=== PATIENT | female | born 1935 | race African-American/Black ===

== ENCOUNTER 2018-08-03 22:07 | Inpatient (IN) | payer MEDICARE, MEDICAID ==
[~2018-08-03] VITALS: Ht 167.6 cm; Wt 99.8 kg
[2018-08-03] MEDS ORDERED: ONDANSETRON HCL 4MG/2ML INJ IV ONE (23:45)
[2018-08-03] MEDS ORDERED: MORPHINE SULFATE 10 MG/ML CPJ IV ONE (23:45)
[2018-08-03] MEDS ORDERED: ENALAPRIL 2.5MG/2ML VIAL 2ML IV ONE (23:45)
[2018-08-04] MEDS ORDERED: AZITHROMYCIN 500 MG in DEXT 5% WATER 250 ML IV ONE (01:00)
[2018-08-04] MEDS ORDERED: CEFTRIAXONE 1 G PREMIX 50 ML IV ONE (01:00)
[2018-08-04 02:00] LABS: BASOPHILS % 0.8 % (0.0-2.0); EOSINOPHILS % 2.7 % (0.0-5.0); HEMATOCRIT. 28.3 % (36.0-48.0); HEMOGLOBIN. 9.1 g/dL (12.0-16.0); LYMPHOCYTES % 17.3 % (20.0-50.0); MEAN CORPUSCULAR HEMOGLOBIN 29.5 pg (28.0-32.0); MEAN CORPUSCULAR VOLUME 91.2 fL (81.0-99.0); MEAN PLATELET VOLUME 7.9 fl (7.4-10.4); MONOCYTES % 7.4 % (2.0-8.0); NEUTROPHILS % 71.8 % (40.0-76.0); PLATELET 249 x1000/uL (130-400); RED CELL DISTRIBUTION WIDTH 15.2 % (11.6-14.6)
[2018-08-04 02:03] LABS: CHLORIDE 114 mEq/L (98-107)
[2018-08-04] MEDS ORDERED: LABETALOL 5MG/ML SYR 20 MG/4 ML SYRINGE IV ONE (02:30)
[2018-08-04] MEDS: LABETALOL HCL 20MG/4ML CARPUJECT IV SCH ×3 (03:26→03:50)
[2018-08-04] MEDS ORDERED: CLONIDINE 0.3MG TABLET PO ONE (05:30)
[2018-08-04] MEDS ORDERED: ALBUTEROL (0.083%) 2.5MG/3ML NEB HHN SCH (05:38)
[2018-08-04] MEDS ORDERED: ALBUTEROL (0.5%) 2.5MG/0.5ML NEB HHN ONE (05:54)
[2018-08-04] MEDS ORDERED: CLONIDINE 0.2MG TABLET ONE (08:21)
[2018-08-04] MEDS ORDERED: DOCUSATE SODIUM 100MG CAPSULE PO PRN (10:30)
[2018-08-04] MEDS ORDERED: IPRATROPIUM/ALBUTEROL 0.5-3(2.5)MG/3ML NEB INH PRN (10:30)
[2018-08-04] MEDS ORDERED: GUAIFENESIN 200MG/10ML SUGAR FREE UDC PO PRN (10:30)
[2018-08-04] MEDS ORDERED: NITROGLYCERIN 0.4MG TABLET SL SL PRN (10:30)
[2018-08-04] MEDS ORDERED: ONDANSETRON HCL 4MG/2ML INJ IV PRN (10:30)
[2018-08-04] MEDS ORDERED: ZOLPIDEM TARTRATE 5MG TABLET PO PRN (10:30)
[2018-08-04] MEDS ORDERED: CLONIDINE 0.1MG TABLET PO PRN (10:30)
[2018-08-04] MEDS ORDERED: ACETAMINOPHEN 325MG TABLET PO PRN (10:30)
[2018-08-04] MEDS ORDERED: TRAMADOL 50MG TABLET PO PRN (10:30)
[2018-08-04] MEDS ORDERED: MAGNESIUM/ALUMINUM HYDROXIDE/SIMETHICONE 30ML UDC PO PRN (10:30)
[2018-08-04 10:33] VITALS: BP 188/89
[2018-08-04] MEDS ORDERED: AMLODIPINE 10MG TABLET PO SCH (10:39)
[2018-08-04] MEDS ORDERED: MINOXIDIL 2.5MG TABLET PO SCH (11:10)
[2018-08-04] MEDS ORDERED: ENOXAPARIN 40MG/0.4ML SYR SUBCUT SCH (11:19)
[2018-08-04] MEDS ORDERED: FAMOTIDINE 20MG TABLET PO SCH (11:21)
[2018-08-04 12:00] VITALS: BP 198/108
[2018-08-04] MEDS ORDERED: FUROSEMIDE 40MG/4ML VIAL IVP SCH (13:15)
[2018-08-04] MEDS ORDERED: HYDRALAZINE HCL 50MG TABLET PO SCH (14:00)
[2018-08-04] MEDS ORDERED: ASCORBIC ACID 500 MG TABLET PO SCH (21:00)
[2018-08-04] MEDS ORDERED: METOPROLOL TARTRATE 25MG TABLET PO SCH (21:00)
[2018-08-05] MEDS ORDERED: ASPIRIN 325MG EC TABLET PO SCH (09:00)
[2018-08-05] MEDS ORDERED: FOLIC ACID/VITAMIN B COMP W-C TABLET PO SCH (09:00)
== END 2018-08-04 15:08 | disposition left against medical advice (07) | DRG 194 ==
LOC: ER 22:07 → 6WST 08-04 05:15 → EDBEDREQ 08-04 05:19 → EDBEDREQTM 08-04 05:19 → ENRESERV 08-04 08:10 → ER 08-04 09:02 → SUPCPDRO 08-04 09:39
PROVIDERS: ADMIT Internal Medicine; ATTEND Internal Medicine
DX: I13.2 Hypertensive heart and chronic kidney disease with heart failure and with stage 5 chronic kidney disease, or end stage renal disease (principal); J96.91 Respiratory failure, unspecified with hypoxia; E43 Unspecified severe protein-calorie malnutrition; G93.40 Encephalopathy, unspecified; E87.0 Hyperosmolality and hypernatremia; D63.8 Anemia in other chronic diseases classified elsewhere; E83.51 Hypocalcemia; I16.0 Hypertensive urgency; I50.33 Acute on chronic diastolic (congestive) heart failure; F41.9 Anxiety disorder, unspecified; N17.9 Acute kidney failure, unspecified; N18.5 Chronic kidney disease, stage 5; Z91.14 Patient's other noncompliance with medication regimen; Z91.11 Patient's noncompliance with dietary regimen; Z82.49 Family history of ischemic heart disease and other diseases of the circulatory system
CPT/HCPCS: 36415; 71045; 80061; 83036; 83605; 84484; 93005; 93306; 96365; 96366; 96375; 99291; J0456; J0696; J1650; J1940; J2270; J2405; J3490; J7060; J7611

== ENCOUNTER 2018-10-07 09:03 | Inpatient (IN) | payer MEDICARE, MEDICAID ==
[~2018-10-07] VITALS: Ht 170.2 cm; Wt 85.7 kg
[2018-10-07] MEDS ORDERED: KETOROLAC 15MG/ML VIAL IV ONE (11:00)
[2018-10-07] MEDS ORDERED: SODIUM CHLORIDE 0.9% 1,000 ML IV ONE (11:00)
[2018-10-07] MEDS ORDERED: ONDANSETRON HCL 4MG/2ML INJ IV ONE (11:00)
[2018-10-07 11:25] LABS: BASOPHILS % 0.7 % (0.0-2.0); EOSINOPHILS % 1.9 % (0.0-5.0); HEMATOCRIT. 30.3 % (36.0-48.0); LYMPHOCYTES % 13.3 % (20.0-50.0); MEAN CORPUSCULAR HEMOGLOBIN 30.1 pg (28.0-32.0); MEAN CORPUSCULAR VOLUME 91.2 fL (81.0-99.0); MEAN PLATELET VOLUME 7.5 fl (7.4-10.4); MONOCYTES % 5.8 % (2.0-8.0); NEUTROPHILS % 78.3 % (40.0-76.0); PLATELET 271 x1000/uL (130-400); RED BLOOD CELL COUNT 3.32 mill/uL (4.2-5.4); RED CELL DISTRIBUTION WIDTH 16.2 % (11.6-14.6)
[2018-10-07 11:29] LABS: CHLORIDE 108 mEq/L (98-107)
[2018-10-07 11:31] LABS: INR 1.1; PROTHROMBIN TIME 10.9 sec (9.1-11.1)
[2018-10-07 13:11] LABS: CLARITY URINE CLEAR (CLEAR); COLOR URINE YELLOW (YELLOW); KETONES URINE NEGATIVE (NEGATIVE); LEUKOCYTE ESTERASE URINE NEGATIVE (NEGATIVE); NITRITE URINE NEGATIVE (NEGATIVE); OCCULT BLOOD URINE NEGATIVE (NEGATIVE); PROTEIN URINE 2+ (NEGATIVE); SPECIFIC GRAVITY URINE 1.012 (1.005-1.030); UROBILINOGEN URINE 0.2 E.U./dL (0.2-1.0)
[2018-10-07] MEDS ORDERED: MAGNESIUM CITRATE 300ML SOLUTION PO ONE (17:00)
[2018-10-07] MEDS ORDERED: MAGNESIUM/ALUMINUM HYDROXIDE/SIMETHICONE 30ML UDC PO PRN (18:30)
[2018-10-07] MEDS ORDERED: MAGNESIUM HYDROXIDE 400MG/5ML 30ML UDC PO PRN (18:30)
[2018-10-07] MEDS ORDERED: DIPHENHYDRAMINE 50MG/ML VIAL IV PRN (18:30)
[2018-10-07] MEDS: AMLODIPINE 10MG TABLET PO SCH (20:12)
[2018-10-07] MEDS: HYDRALAZINE 20MG/ML VIAL IV PRN (20:13)
[2018-10-07] MEDS: METOPROLOL TARTRATE 25MG TABLET PO SCH (20:13)
[2018-10-07] MEDS ORDERED: LACTULOSE 20G/30ML UDC PO NR (21:15)
[2018-10-07] MEDS ORDERED: BISACODYL 10MG SUPP PR NR (21:30)
[2018-10-07] MEDS: ONDANSETRON HCL 4MG/2ML INJ IV PRN (21:42)
[2018-10-07] MEDS: CLONIDINE 0.2MG TABLET PO PRN (23:10)
[2018-10-08] VITALS (18 sets, daily range): BP systolic 120–230; BP diastolic 59–96
[2018-10-08] MEDS: HYDRALAZINE HCL 50MG TABLET PO SCH ×3 (00:26→06:35)
[2018-10-08] MEDS ORDERED: DEXT 5%/0.45% NACL 1000ML 1,000 ML IV SCH ×2 (01:00→16:30)
[2018-10-08] MEDS: HYDRALAZINE 20MG/ML VIAL IV PRN ×2 (02:34→21:53)
[2018-10-08] MEDS: ACETAMINOPHEN 325MG TABLET PO PRN (04:21)
[2018-10-08] MEDS: LACTULOSE 20G/30ML UDC PO SCH ×3 (06:29→22:00)
[2018-10-08] MEDS: ONDANSETRON HCL 4MG/2ML INJ IV PRN (09:10)
[2018-10-08] MEDS: METOPROLOL TARTRATE 25MG TABLET PO SCH ×2 (09:11→21:00)
[2018-10-08] MEDS: AMLODIPINE 10MG TABLET PO SCH (09:12)
[2018-10-08] MEDS ORDERED: LACTULOSE 20G/30ML UDC PO PRN (12:45)
[2018-10-08] MEDS ORDERED: BISACODYL 10MG SUPP PR PRN (12:45)
[2018-10-08 13:24] LABS: T4 FREE 0.96 ng/dL (0.76-1.46)
[2018-10-08 13:39] LABS: FERRITIN 122 ng/mL (10-291)
[2018-10-08 13:50] LABS: VITAMIN B12 SERUM 1358 pg/mL (211-911)
[2018-10-08 13:54] LABS: BG CARBOXYHEMOGLOBIN 0.5 % (0.5-1.5); BG DEOXYHEMOGLOBIN 4.6 % (0.0-5.0); BG FRACTION INSPIRED OXYGEN 21; BG HCO3 ACT 22.1 mmol/L (22.0-26.0); BG METHEMOGLOBIN 0.1 % (0.0-1.5); BG OXYGEN SATURATION 95.4 % (92.0-98.5); BG OXYHEMOGLOBIN 94.8 % (94.0-97.0); BG PCO2 31.5 mmHg (35.0-45.0); BG PH 7.464 (7.350-7.450); BG PO2 72.5 mmHg (75.0-100.0); BG SAMPLE SITE LEFT BRACHIAL; BG TOTAL HEMOGLOBIN 10.9 g/dL (12.0-18.0); BG VENT MODE ROOM AIR
[2018-10-08] MEDS: FOLIC ACID/VITAMIN B COMP W-C TABLET PO SCH (13:54)
[2018-10-08] MEDS: HYDRALAZINE HCL 100MG TABLET PO SCH ×2 (13:55→22:00)
[2018-10-08 13:59] LABS: FOLIC ACID (FOLATE) SERUM > 20.00 ng/mL (>5.38)
[2018-10-08] MEDS ORDERED: NA PHOS,M-B/NA PHOS,DI-BA ENEMA 118ML PR PRN (16:00)
[2018-10-08 16:24] LABS: HEMOGLOBIN. 10.3 g/dL (12.0-16.0); MEAN CORPUSCULAR HEMOGLOBIN 29.7 pg (28.0-32.0); MEAN CORPUSCULAR VOLUME 89.5 fL (81.0-99.0); MEAN PLATELET VOLUME 8.1 fl (7.4-10.4); PLATELET 305 x1000/uL (130-400); RED BLOOD CELL COUNT 3.46 mill/uL (4.2-5.4); RED CELL DISTRIBUTION WIDTH 16.6 % (11.6-14.6)
[2018-10-08] MEDS: PANTOPRAZOLE SODIUM 40 MG/VIAL IV SCH (16:30)
[2018-10-08] MEDS ORDERED: MORPHINE SULFATE 4 MG/ML CPJ (NOT FOR IM USE) IV PRN (16:45)
[2018-10-08] MEDS: SEVELAMER CARBONATE 800 MG TABLET PO SCH (17:50)
[2018-10-08] MEDS ORDERED: ROCURONIUM BROMIDE 10MG/ML VIAL 5ML IV ONE (18:08)
[2018-10-08] MEDS ORDERED: ETOMIDATE 2MG/ML 10ML VIAL IV ONE (18:08)
[2018-10-08] MEDS ORDERED: LIDOCAINE HCL 1% 20ML VIAL (Pyxis) INJ ONE (18:09)
[2018-10-08] MEDS ORDERED: SUCCINYLCHOLINE CHLORIDE 200MG/10ML IV ONE (18:09)
[2018-10-08] MEDS ORDERED: PHENYLEPHRINE HCL 10 MG/ML 1ML (IV VIAL) IV ONE (18:09)
[2018-10-08] MEDS ORDERED: EPHEDRINE SULFATE 50MG/ML VIAL ONE (18:09)
[2018-10-08] MEDS ORDERED: ALBUMIN HUMAN 12.5G/250ML (5%) IV ONE (18:13)
[2018-10-08] MEDS ORDERED: VANCOMYCIN 1500MG in DEXTROSE 5% WATER 250ML IV NR (18:30)
[2018-10-08] MEDS ORDERED: FENTANYL CITRATE/PF 50MCG/ML 2ML VIAL ONE (19:15)
[2018-10-08] MEDS ORDERED: MIDAZOLAM HCL 2 MG/2 ML VIAL ONE (19:15)
[2018-10-08] MEDS ORDERED: PROPOFOL 200MG/20ML VIAL IV ONE (19:15)
[2018-10-08] MEDS ORDERED: ONDANSETRON HCL 4MG/2ML INJ IV PRN (19:30)
[2018-10-08] MEDS ORDERED: ACETAMINOPHEN 650MG SUPP PR PRN (19:30)
[2018-10-08] MEDS ORDERED: VANCOMYCIN HCL 500 MG/VIAL ONE (19:46)
[2018-10-08] MEDS ORDERED: PIPERACILLIN/TAZ 2.25G PREMIX 50 ML IV SCH (20:00)
[2018-10-08] MEDS ORDERED: BACITRACIN 50,000 UNITS/VIAL ONE (20:05)
[2018-10-08] MEDS ORDERED: FAMOTIDINE 20MG/2ML VIAL IV SCH (21:00)
[2018-10-08] MEDS ORDERED: LEVOFLOXACIN 500MG PREMIX 100 ML IV SCH (22:00)
[2018-10-08 22:22] LABS: BG BASE EXCESS -8.7 mmol/L (-2.0-2.0); BG CARBOXYHEMOGLOBIN 0.3 % (0.5-1.5); BG DEOXYHEMOGLOBIN 0.8 % (0.0-5.0); BG FRACTION INSPIRED OXYGEN 60; BG HCO3 ACT 17.9 mmol/L (22.0-26.0); BG METHEMOGLOBIN 0.2 % (0.0-1.5); BG OXYGEN SATURATION 99.2 % (92.0-98.5); BG OXYHEMOGLOBIN 98.7 % (94.0-97.0); BG PH 7.257 (7.350-7.450); BG PO2 262.9 mmHg (75.0-100.0); BG SAMPLE SITE RIGHT RADIAL; BG TIDAL VOLUME(mL) 500 mL; BG TOTAL HEMOGLOBIN 10.7 g/dL (12.0-18.0); BG VENT MODE VENT - A/C; BG VENT RATE 10 set
[2018-10-08] MEDS: METRONIDAZOLE 500 MG PREMIX 100 ML IV SCH (22:34)
[2018-10-08] MEDS: DEXT 5%/0.45% NACL KCL 20MEQ/L 1,000 ML IV SCH (22:34)
[2018-10-08] MEDS: PIPERACILLIN/TAZ 2.25G PREMIX 50 ML IV SCH (23:10)
[2018-10-08 23:25] LABS: PLATELET ESTIMATE NORMAL
[2018-10-09] VITALS (64 sets, daily range): BP systolic 89–168; BP diastolic 49–100
[2018-10-09] MEDS: METRONIDAZOLE 500 MG PREMIX 100 ML IV SCH ×2 (04:30→16:51)
[2018-10-09] MEDS: DEXT 5%/0.45% NACL KCL 20MEQ/L 1,000 ML IV SCH ×2 (04:30→16:51)
[2018-10-09 05:34] LABS: HEMOGLOBIN. 9.9 g/dL (12.0-16.0); MEAN CORPUSCULAR HEMOGLOBIN 29.4 pg (28.0-32.0); MEAN CORPUSCULAR VOLUME 91.4 fL (81.0-99.0); MEAN PLATELET VOLUME 8.3 fl (7.4-10.4); PLATELET 285 x1000/uL (130-400); RED BLOOD CELL COUNT 3.39 mill/uL (4.2-5.4); RED CELL DISTRIBUTION WIDTH 16.5 % (11.6-14.6)
[2018-10-09] MEDS: HYDRALAZINE HCL 100MG TABLET PO SCH ×3 (06:00→21:09)
[2018-10-09] MEDS: LACTULOSE 20G/30ML UDC PO SCH ×3 (06:00→21:09)
[2018-10-09] MEDS: SEVELAMER CARBONATE 800 MG TABLET PO SCH ×3 (06:22→16:46)
[2018-10-09 06:23] LABS: CHLORIDE 112 mEq/L (98-107)
[2018-10-09 06:42] LABS: PHOSPHORUS 5.6 mg/dL (2.5-4.9)
[2018-10-09] MEDS ORDERED: LIDOCAINE HCL 1% 20ML VIAL (Pyxis) INJ ONE ×2 (07:59→10:09)
[2018-10-09] MEDS: AMLODIPINE 10MG TABLET PO SCH (08:40)
[2018-10-09] MEDS: METOPROLOL TARTRATE 25MG TABLET PO SCH ×2 (08:40→20:58)
[2018-10-09] MEDS: FOLIC ACID/VITAMIN B COMP W-C TABLET PO SCH (08:40)
[2018-10-09 09:24] LABS: PLATELET ESTIMATE NORMAL
[2018-10-09] MEDS ORDERED: HEPARIN 1000 UNITS/ML 10ML ONE (10:54)
[2018-10-09] MEDS ORDERED: ACETAMINOPHEN 650MG SUPP PR PRN (11:15)
[2018-10-09] MEDS: MORPHINE SULFATE 4 MG/ML CPJ (NOT FOR IM USE) IV PRN ×2 (11:44→16:55)
[2018-10-09] MEDS: PIPERACILLIN/TAZ 2.25G PREMIX 50 ML IV SCH ×2 (12:00→22:35)
[2018-10-09] MEDS ORDERED: LORAZEPAM 2MG/ML CPJ IV NR (14:15)
[2018-10-09 15:39] LABS: CLARITY URINE CLOUDY (CLEAR); COLOR URINE YELLOW (YELLOW); KETONES URINE NEGATIVE (NEGATIVE); LEUKOCYTE ESTERASE URINE TRACE (NEGATIVE); NITRITE URINE NEGATIVE (NEGATIVE); OCCULT BLOOD URINE NEGATIVE (NEGATIVE); PROTEIN URINE 3+ (NEGATIVE); SPECIFIC GRAVITY URINE 1.017 (1.005-1.030); UROBILINOGEN URINE 0.2 E.U./dL (0.2-1.0)
[2018-10-09] MEDS: PANTOPRAZOLE SODIUM 40 MG/VIAL IV SCH (16:51)
[2018-10-09 17:59] LABS: BG BASE EXCESS -0.7 mmol/L (-2.0-2.0); BG CARBOXYHEMOGLOBIN 0.3 % (0.5-1.5); BG DEOXYHEMOGLOBIN 0.9 % (0.0-5.0); BG FRACTION INSPIRED OXYGEN 45; BG HCO3 ACT 22.3 mmol/L (22.0-26.0); BG METHEMOGLOBIN 0.1 % (0.0-1.5); BG OXYGEN SATURATION 99.1 % (92.0-98.5); BG OXYHEMOGLOBIN 98.7 % (94.0-97.0); BG PH 7.475 (7.350-7.450); BG PO2 211.5 mmHg (75.0-100.0); BG SAMPLE SITE RIGHT BRACHIAL; BG TIDAL VOLUME(mL) 500 mL; BG TOTAL HEMOGLOBIN 10.6 g/dL (12.0-18.0); BG VENT MODE VENT - A/C; BG VENT RATE 14 set
[2018-10-10] VITALS (65 sets, daily range): BP systolic 97–187; BP diastolic 53–145
[2018-10-10] MEDS: DEXT 5%/0.45% NACL KCL 20MEQ/L 1,000 ML IV SCH ×2 (00:30→09:20)
[2018-10-10] MEDS: MORPHINE SULFATE 4 MG/ML CPJ (NOT FOR IM USE) IV PRN ×3 (02:30→18:30)
[2018-10-10 05:56] LABS: HEMATOCRIT. 25.6 % (36.0-48.0); HEMOGLOBIN. 8.4 g/dL (12.0-16.0); MEAN CORPUSCULAR HEMOGLOBIN 29.5 pg (28.0-32.0); MEAN CORPUSCULAR VOLUME 89.5 fL (81.0-99.0); MEAN PLATELET VOLUME 8.5 fl (7.4-10.4); PLATELET 241 x1000/uL (130-400); RED BLOOD CELL COUNT 2.86 mill/uL (4.2-5.4)
[2018-10-10] MEDS: HYDRALAZINE HCL 100MG TABLET PO SCH ×3 (06:00→21:10)
[2018-10-10] MEDS: LACTULOSE 20G/30ML UDC PO SCH ×3 (06:00→21:09)
[2018-10-10 06:05] LABS: CHLORIDE 102 mEq/L (98-107)
[2018-10-10] MEDS: SEVELAMER CARBONATE 800 MG TABLET PO SCH ×3 (06:06→16:27)
[2018-10-10 06:18] LABS: PHOSPHORUS 4.2 mg/dL (2.5-4.9)
[2018-10-10] MEDS: METOPROLOL TARTRATE 25MG TABLET PO SCH ×2 (09:00→21:09)
[2018-10-10] MEDS: FOLIC ACID/VITAMIN B COMP W-C TABLET PO SCH (09:00)
[2018-10-10] MEDS: AMLODIPINE 10MG TABLET PO SCH (09:00)
[2018-10-10] MEDS: PANTOPRAZOLE SODIUM 40 MG/VIAL IV SCH (09:14)
[2018-10-10] MEDS ORDERED: VANCOMYCIN 1250MG in DEXTROSE 5% WATER 250ML IV NR (10:00)
[2018-10-10 10:34] LABS: NUCLEATED RED BLOOD CELLS 1 /100 WBC
[2018-10-10 10:35] LABS: PLATELET ESTIMATE NORMAL
[2018-10-10] MEDS: DEXT 5%/0.45% NACL 1000ML 1,000 ML IV SCH ×2 (12:00→22:22)
[2018-10-10] MEDS ORDERED: LORAZEPAM 2MG/ML CPJ IV PRN (12:00)
[2018-10-10] MEDS ORDERED: DILTIAZEM HCL 5MG/ML 5ML VIAL IV NR (15:00)
[2018-10-10] MEDS: PIPERACILLIN/TAZ 2.25G PREMIX 50 ML IV SCH ×2 (15:22→22:21)
[2018-10-10] MEDS ORDERED: VANCOMYCIN 1500MG in DEXTROSE 5% WATER 250ML IV NR (16:00)
[2018-10-10 16:08] LABS: BG BASE EXCESS 4.2 mmol/L (-2.0-2.0); BG CARBOXYHEMOGLOBIN 0.3 % (0.5-1.5); BG DEOXYHEMOGLOBIN 2.1 % (0.0-5.0); BG HCO3 ACT 27.4 mmol/L (22.0-26.0); BG METHEMOGLOBIN 0.3 % (0.0-1.5); BG OXYGEN SATURATION 97.9 % (92.0-98.5); BG OXYHEMOGLOBIN 97.3 % (94.0-97.0); BG PCO2 35.1 mmHg (35.0-45.0); BG PO2 100.6 mmHg (75.0-100.0); BG SAMPLE SITE RIGHT BRACHIAL; BG TIDAL VOLUME(mL) 450 mL; BG TOTAL HEMOGLOBIN 8.9 g/dL (12.0-18.0); BG VENT MODE VENT - A/C; BG VENT RATE 14 set
[2018-10-10] MEDS ORDERED: DIGOXIN 500MCG/2ML AMP IV NR (19:00)
[2018-10-11] VITALS (97 sets, daily range): BP systolic 102–184; BP diastolic 48–102
[2018-10-11] MEDS: MORPHINE SULFATE 4 MG/ML CPJ (NOT FOR IM USE) IV PRN (02:00)
[2018-10-11] MEDS: LACTULOSE 20G/30ML UDC PO SCH ×3 (05:13→21:24)
[2018-10-11] MEDS: HYDRALAZINE HCL 100MG TABLET PO SCH ×3 (05:14→21:25)
[2018-10-11] MEDS: SEVELAMER CARBONATE 800 MG TABLET PO SCH ×3 (06:15→17:00)
[2018-10-11 06:47] LABS: MEAN CORPUSCULAR HEMOGLOBIN 30.1 pg (28.0-32.0); MEAN CORPUSCULAR VOLUME 89.2 fL (81.0-99.0); MEAN PLATELET VOLUME 8.6 fl (7.4-10.4); PLATELET 193 x1000/uL (130-400); RED BLOOD CELL COUNT 2.26 mill/uL (4.2-5.4); RED CELL DISTRIBUTION WIDTH 16.4 % (11.6-14.6)
[2018-10-11 07:05] LABS: HEMATOCRIT. 20.1 % (36.0-48.0); HEMOGLOBIN. 6.8 g/dL (12.0-16.0)
[2018-10-11 07:27] LABS: CHLORIDE 98 mEq/L (98-107)
[2018-10-11 07:35] LABS: PHOSPHORUS 3.5 mg/dL (2.5-4.9)
[2018-10-11] MEDS: DEXT 5%/0.45% NACL 1000ML 1,000 ML IV SCH ×2 (08:12→17:29)
[2018-10-11 08:42] LABS: BG BASE EXCESS 2.5 mmol/L (-2.0-2.0); BG CARBOXYHEMOGLOBIN 0.6 % (0.5-1.5); BG DEOXYHEMOGLOBIN 1.2 % (0.0-5.0); BG FRACTION INSPIRED OXYGEN 35; BG HCO3 ACT 26.4 mmol/L (22.0-26.0); BG METHEMOGLOBIN 0.3 % (0.0-1.5); BG OXYGEN SATURATION 98.8 % (92.0-98.5); BG OXYHEMOGLOBIN 97.9 % (94.0-97.0); BG PCO2 37.8 mmHg (35.0-45.0); BG PH 7.462 (7.350-7.450); BG PO2 118.3 mmHg (75.0-100.0); BG SAMPLE SITE RIGHT RADIAL; BG TIDAL VOLUME(mL) 450 mL; BG TOTAL HEMOGLOBIN 8.2 g/dL (12.0-18.0); BG VENT MODE VENT - A/C; BG VENT RATE 12 set
[2018-10-11] MEDS: FOLIC ACID/VITAMIN B COMP W-C TABLET PO SCH (08:43)
[2018-10-11] MEDS: METOPROLOL TARTRATE 25MG TABLET PO SCH ×2 (08:44→21:25)
[2018-10-11] MEDS: AMLODIPINE 10MG TABLET PO SCH (08:44)
[2018-10-11 09:06] LABS: PLATELET ESTIMATE NORMAL
[2018-10-11] MEDS: PANTOPRAZOLE SODIUM 40 MG/VIAL IV SCH (10:37)
[2018-10-11] MEDS: PIPERACILLIN/TAZ 2.25G PREMIX 50 ML IV SCH (10:46)
[2018-10-11] MEDS: MEROPENEM 500 MG in SODIUM CHLORIDE 0.9% 50 ML IV SCH (16:10)
[2018-10-11] MEDS: METRONIDAZOLE 500 MG PREMIX 100 ML IV SCH ×2 (17:15→22:01)
[2018-10-11 18:21] LABS: BG BASE EXCESS 1.8 mmol/L (-2.0-2.0); BG CARBOXYHEMOGLOBIN 0.3 % (0.5-1.5); BG DEOXYHEMOGLOBIN 1.8 % (0.0-5.0); BG FRACTION INSPIRED OXYGEN 35; BG HCO3 ACT 25.8 mmol/L (22.0-26.0); BG METHEMOGLOBIN 0.1 % (0.0-1.5); BG OXYGEN SATURATION 98.2 % (92.0-98.5); BG OXYHEMOGLOBIN 97.8 % (94.0-97.0); BG PCO2 38.1 mmHg (35.0-45.0); BG PH 7.448 (7.350-7.450); BG PO2 112.2 mmHg (75.0-100.0); BG PRESSURE SUPPORT 8; BG SAMPLE SITE RIGHT RADIAL; BG TOTAL HEMOGLOBIN 10.8 g/dL (12.0-18.0); BG VENT MODE VENT - CPAP
[2018-10-11 20:07] LABS: HEMATOCRIT 29.2 % (36.0-48.0); HEMOGLOBIN 9.7 g/dL (12.0-16.0)
[2018-10-12] VITALS (57 sets, daily range): BP systolic 135–214; BP diastolic 61–100
[2018-10-12] MEDS: CLONIDINE 0.2MG TABLET PO PRN (01:29)
[2018-10-12 05:27] LABS: HEMATOCRIT. 27.4 % (36.0-48.0); HEMOGLOBIN. 9.1 g/dL (12.0-16.0); MEAN CORPUSCULAR HEMOGLOBIN 29.4 pg (28.0-32.0); MEAN CORPUSCULAR VOLUME 88.8 fL (81.0-99.0); MEAN PLATELET VOLUME 8.4 fl (7.4-10.4); PLATELET 200 x1000/uL (130-400); RED BLOOD CELL COUNT 3.09 mill/uL (4.2-5.4); RED CELL DISTRIBUTION WIDTH 15.6 % (11.6-14.6)
[2018-10-12 05:35] LABS: CHLORIDE 102 mEq/L (98-107)
[2018-10-12 05:56] LABS: PHOSPHORUS 3.1 mg/dL (2.5-4.9)
[2018-10-12] MEDS: DEXT 5%/0.45% NACL 1000ML 1,000 ML IV SCH ×2 (06:10→12:46)
[2018-10-12] MEDS: HYDRALAZINE HCL 100MG TABLET PO SCH ×2 (06:19→13:01)
[2018-10-12] MEDS: SEVELAMER CARBONATE 800 MG TABLET PO SCH ×3 (06:19→17:00)
[2018-10-12] MEDS: LACTULOSE 20G/30ML UDC PO SCH ×3 (06:19→21:11)
[2018-10-12 06:58] LABS: NUCLEATED RED BLOOD CELLS 1 /100 WBC
[2018-10-12 07:01] LABS: PLATELET ESTIMATE NORMAL
[2018-10-12 08:29] LABS: BG BASE EXCESS -0.4 mmol/L (-2.0-2.0); BG CARBOXYHEMOGLOBIN 0.1 % (0.5-1.5); BG DEOXYHEMOGLOBIN 1.4 % (0.0-5.0); BG FRACTION INSPIRED OXYGEN 35; BG HCO3 ACT 23.9 mmol/L (22.0-26.0); BG METHEMOGLOBIN 0.3 % (0.0-1.5); BG OXYGEN SATURATION 98.6 % (92.0-98.5); BG OXYHEMOGLOBIN 98.2 % (94.0-97.0); BG PCO2 37.5 mmHg (35.0-45.0); BG PH 7.422 (7.350-7.450); BG PO2 129.6 mmHg (75.0-100.0); BG PRESSURE SUPPORT 8; BG SAMPLE SITE RIGHT RADIAL; BG VENT MODE VENT - CPAP
[2018-10-12] MEDS: FOLIC ACID/VITAMIN B COMP W-C TABLET PO SCH (09:07)
[2018-10-12] MEDS: AMLODIPINE 10MG TABLET PO SCH (09:07)
[2018-10-12] MEDS: METRONIDAZOLE 500 MG PREMIX 100 ML IV SCH ×2 (09:07→21:10)
[2018-10-12] MEDS: PANTOPRAZOLE SODIUM 40 MG/VIAL IV SCH (09:07)
[2018-10-12] MEDS: METOPROLOL TARTRATE 25MG TABLET PO SCH ×2 (09:07→21:10)
[2018-10-12] MEDS: MORPHINE SULFATE 4 MG/ML CPJ (NOT FOR IM USE) IV PRN ×2 (09:45→18:03)
[2018-10-12 09:53] LABS: HEMATOCRIT 28.8 % (36.0-48.0); HEMOGLOBIN 9.4 g/dL (12.0-16.0); MEAN CORPUSCULAR HEMOGLOBIN 29.6 pg (28.0-32.0); MEAN CORPUSCULAR VOLUME 90.1 fL (81.0-99.0); PLATELET 217 x1000/uL (130-400); RED BLOOD CELL COUNT 3.19 mill/uL (4.2-5.4)
[2018-10-12] MEDS ORDERED: METOPROLOL TARTRATE 5MG/5ML VIAL IV NR (11:00)
[2018-10-12] MEDS: MEROPENEM 500 MG in SODIUM CHLORIDE 0.9% 50 ML IV SCH (12:46)
[2018-10-12] MEDS ORDERED: METOPROLOL TARTRATE 5MG/5ML VIAL IV PRN (15:02)
[2018-10-12 16:23] LABS: BG BASE EXCESS -2.3 mmol/L (-2.0-2.0); BG CARBOXYHEMOGLOBIN 0.2 % (0.5-1.5); BG DEOXYHEMOGLOBIN 1.7 % (0.0-5.0); BG FRACTION INSPIRED OXYGEN 35; BG HCO3 ACT 21.7 mmol/L (22.0-26.0); BG METHEMOGLOBIN 0.2 % (0.0-1.5); BG OXYGEN SATURATION 98.3 % (92.0-98.5); BG OXYHEMOGLOBIN 97.9 % (94.0-97.0); BG PCO2 34.2 mmHg (35.0-45.0); BG PO2 107.9 mmHg (75.0-100.0); BG SAMPLE SITE RIGHT RADIAL; BG TOTAL HEMOGLOBIN 10.1 g/dL (12.0-18.0); BG VENT MODE T-TUBE
[2018-10-13] VITALS (58 sets, daily range): BP systolic 125–190; BP diastolic 56–92
[2018-10-13] MEDS: HYDRALAZINE HCL 100MG TABLET PO SCH ×4 (00:11→21:31)
[2018-10-13] MEDS: DEXT 5%/0.45% NACL 1000ML 1,000 ML IV SCH ×2 (02:29→15:00)
[2018-10-13 05:14] LABS: HEMATOCRIT. 29.2 % (36.0-48.0); HEMOGLOBIN. 9.6 g/dL (12.0-16.0); MEAN CORPUSCULAR HEMOGLOBIN 29.3 pg (28.0-32.0); MEAN CORPUSCULAR VOLUME 89.7 fL (81.0-99.0); MEAN PLATELET VOLUME 8.2 fl (7.4-10.4); PLATELET 214 x1000/uL (130-400); RED BLOOD CELL COUNT 3.26 mill/uL (4.2-5.4); RED CELL DISTRIBUTION WIDTH 15.9 % (11.6-14.6)
[2018-10-13 05:39] LABS: CHLORIDE 102 mEq/L (98-107)
[2018-10-13] MEDS: LACTULOSE 20G/30ML UDC PO SCH ×3 (06:33→21:30)
[2018-10-13] MEDS: SEVELAMER CARBONATE 800 MG TABLET PO SCH ×3 (06:39→17:44)
[2018-10-13 06:53] LABS: HEPATITIS B SURFACE ANTIGEN NEGATIVE
[2018-10-13 07:23] LABS: HEPATITIS A AB IGM NEGATIVE (NEGATIVE)
[2018-10-13 07:33] LABS: BG BASE EXCESS -1.4 mmol/L (-2.0-2.0); BG CARBOXYHEMOGLOBIN 0.3 % (0.5-1.5); BG DEOXYHEMOGLOBIN 1.5 % (0.0-5.0); BG FRACTION INSPIRED OXYGEN 35; BG HCO3 ACT 23.1 mmol/L (22.0-26.0); BG METHEMOGLOBIN 0.1 % (0.0-1.5); BG OXYGEN SATURATION 98.5 % (92.0-98.5); BG OXYHEMOGLOBIN 98.1 % (94.0-97.0); BG PCO2 37.7 mmHg (35.0-45.0); BG PH 7.405 (7.350-7.450); BG PO2 126.4 mmHg (75.0-100.0); BG SAMPLE SITE RIGHT RADIAL; BG TOTAL HEMOGLOBIN 9.9 g/dL (12.0-18.0); BG VENT MODE MASK - AEROSOL
[2018-10-13] MEDS: METRONIDAZOLE 500 MG PREMIX 100 ML IV SCH ×2 (08:58→20:50)
[2018-10-13] MEDS: FOLIC ACID/VITAMIN B COMP W-C TABLET PO SCH (08:58)
[2018-10-13] MEDS: PANTOPRAZOLE SODIUM 40 MG/VIAL IV SCH (08:59)
[2018-10-13] MEDS: METOPROLOL TARTRATE 25MG TABLET PO SCH ×2 (08:59→20:51)
[2018-10-13] MEDS: AMLODIPINE 10MG TABLET PO SCH (08:59)
[2018-10-13 10:27] LABS: PLATELET ESTIMATE NORMAL
[2018-10-13] MEDS: MEROPENEM 500 MG in SODIUM CHLORIDE 0.9% 50 ML IV SCH (13:07)
[2018-10-13] MEDS: ACETAMINOPHEN 325MG TABLET PO PRN (22:07)
[2018-10-13] MEDS: CLONIDINE 0.2MG TABLET PO PRN (22:07)
[2018-10-14] VITALS (53 sets, daily range): BP systolic 130–169; BP diastolic 53–121
[2018-10-14] MEDS: DEXT 5%/0.45% NACL 1000ML 1,000 ML IV SCH (04:42)
[2018-10-14 05:17] LABS: HIV SCREEN 4G Non Reactive (Non Reactive)
[2018-10-14 05:39] LABS: HEMOGLOBIN. 9.2 g/dL (12.0-16.0); MEAN CORPUSCULAR HEMOGLOBIN 29.3 pg (28.0-32.0); MEAN CORPUSCULAR VOLUME 89.4 fL (81.0-99.0); MEAN PLATELET VOLUME 8.4 fl (7.4-10.4); PLATELET 206 x1000/uL (130-400); RED BLOOD CELL COUNT 3.13 mill/uL (4.2-5.4); RED CELL DISTRIBUTION WIDTH 15.7 % (11.6-14.6)
[2018-10-14 05:41] LABS: CHLORIDE 106 mEq/L (98-107)
[2018-10-14 05:47] LABS: PHOSPHORUS 3.1 mg/dL (2.5-4.9)
[2018-10-14] MEDS: HYDRALAZINE HCL 100MG TABLET PO SCH ×3 (05:52→21:59)
[2018-10-14] MEDS: LACTULOSE 20G/30ML UDC PO SCH ×2 (05:52→14:00)
[2018-10-14] MEDS: SEVELAMER CARBONATE 800 MG TABLET PO SCH ×4 (07:00→18:00)
[2018-10-14] MEDS: METOPROLOL TARTRATE 25MG TABLET PO SCH ×2 (09:00→10:19)
[2018-10-14] MEDS: AMLODIPINE 10MG TABLET PO SCH ×2 (09:13→10:19)
[2018-10-14] MEDS: FOLIC ACID/VITAMIN B COMP W-C TABLET PO SCH (09:13)
[2018-10-14] MEDS: METRONIDAZOLE 500 MG PREMIX 100 ML IV SCH ×2 (09:18→21:56)
[2018-10-14] MEDS: PANTOPRAZOLE SODIUM 40 MG/VIAL IV SCH (09:18)
[2018-10-14] MEDS: MEROPENEM 500 MG in SODIUM CHLORIDE 0.9% 50 ML IV SCH (13:21)
[2018-10-14 14:20] LABS: PLATELET ESTIMATE NORMAL
[2018-10-14] MEDS ORDERED: LORAZEPAM 2MG/ML CPJ IV PRN (16:00)
[2018-10-14] MEDS: MORPHINE SULFATE 4 MG/ML CPJ (NOT FOR IM USE) IV PRN (22:18)
[2018-10-15] VITALS (11 sets, daily range): BP systolic 137–169; BP diastolic 64–96
[2018-10-15] MEDS: HYDRALAZINE HCL 100MG TABLET PO SCH ×3 (06:16→21:30)
[2018-10-15 06:27] LABS: HEMATOCRIT. 28.6 % (36.0-48.0); HEMOGLOBIN. 9.3 g/dL (12.0-16.0); MEAN CORPUSCULAR HEMOGLOBIN 29.4 pg (28.0-32.0); MEAN CORPUSCULAR VOLUME 90.3 fL (81.0-99.0); MEAN PLATELET VOLUME 8.5 fl (7.4-10.4); PLATELET 246 x1000/uL (130-400); RED BLOOD CELL COUNT 3.17 mill/uL (4.2-5.4); RED CELL DISTRIBUTION WIDTH 15.6 % (11.6-14.6)
[2018-10-15 06:43] LABS: CHLORIDE 104 mEq/L (98-107)
[2018-10-15] MEDS: METOPROLOL TARTRATE 25MG TABLET PO SCH (08:51)
[2018-10-15] MEDS: METRONIDAZOLE 500 MG PREMIX 100 ML IV SCH ×2 (08:51→21:30)
[2018-10-15] MEDS: SEVELAMER CARBONATE 800 MG TABLET PO SCH ×3 (08:51→18:04)
[2018-10-15] MEDS: PANTOPRAZOLE SODIUM 40 MG/VIAL IV SCH (08:51)
[2018-10-15] MEDS: MORPHINE SULFATE 4 MG/ML CPJ (NOT FOR IM USE) IV PRN (08:55)
[2018-10-15] MEDS: FOLIC ACID/VITAMIN B COMP W-C TABLET PO SCH (09:06)
[2018-10-15] MEDS ORDERED: METOPROLOL TARTRATE 25MG TABLET PO NR (10:05)
[2018-10-15] MEDS: MEROPENEM 500 MG in SODIUM CHLORIDE 0.9% 50 ML IV SCH (12:22)
[2018-10-15] MEDS: METOPROLOL TARTRATE 50MG TABLET PO SCH (21:30)
[2018-10-16] VITALS: BP 161/72
[2018-10-16 03:59] VITALS: BP 166/76
[2018-10-16] MEDS: HYDRALAZINE HCL 100MG TABLET PO SCH ×2 (05:46→15:08)
[2018-10-16 06:00] LABS: HEMATOCRIT. 30.7 % (36.0-48.0); MEAN CORPUSCULAR HEMOGLOBIN 29.3 pg (28.0-32.0); MEAN PLATELET VOLUME 8.6 fl (7.4-10.4); PLATELET 259 x1000/uL (130-400); RED BLOOD CELL COUNT 3.41 mill/uL (4.2-5.4); RED CELL DISTRIBUTION WIDTH 15.7 % (11.6-14.6)
[2018-10-16 07:37] LABS: PHOSPHORUS 4.7 mg/dL (2.5-4.9)
[2018-10-16 07:53] LABS: PLATELET ESTIMATE NORMAL
[2018-10-16 08:00] VITALS: BP 142/82
[2018-10-16 10:44] LABS: PLATELET ESTIMATE NORMAL
[2018-10-16 12:00] VITALS: BP 135/62
[2018-10-16] MEDS ORDERED: HEPARIN SODIUM 1,000 UNIT/1ML VIAL IV NR (12:30)
[2018-10-16] MEDS: PANTOPRAZOLE SODIUM 40 MG/VIAL IV SCH (15:06)
[2018-10-16] MEDS: METRONIDAZOLE 500 MG PREMIX 100 ML IV SCH (15:06)
[2018-10-16] MEDS: FOLIC ACID/VITAMIN B COMP W-C TABLET PO SCH (15:07)
[2018-10-16] MEDS: METOPROLOL TARTRATE 50MG TABLET PO SCH (15:07)
[2018-10-16] MEDS: AMLODIPINE 10MG TABLET PO SCH (15:07)
[2018-10-16 16:00] VITALS: BP 159/70
[2018-10-16] MEDS: ACETAMINOPHEN 325MG TABLET PO PRN (18:01)
[2018-10-16] MEDS: CEFTRIAXONE 2 G in DEXTROSE 5% WATER 50 ML IV SCH (18:06)
[2018-10-16] MEDS: SEVELAMER CARBONATE 800 MG TABLET PO SCH (18:07)
[2018-10-16 20:00] VITALS: BP 152/54
[2018-10-17] VITALS: BP 136/67
[2018-10-17] MEDS: MORPHINE SULFATE 4 MG/ML CPJ (NOT FOR IM USE) IV PRN (03:35)
[2018-10-17 04:00] VITALS: BP 148/64
[2018-10-17] MEDS: HYDRALAZINE HCL 100MG TABLET PO SCH ×3 (06:08→22:08)
[2018-10-17 06:20] LABS: HEMATOCRIT. 28.5 % (36.0-48.0); HEMOGLOBIN. 9.2 g/dL (12.0-16.0); MEAN PLATELET VOLUME 8.6 fl (7.4-10.4); PLATELET 280 x1000/uL (130-400); RED BLOOD CELL COUNT 3.16 mill/uL (4.2-5.4); RED CELL DISTRIBUTION WIDTH 15.3 % (11.6-14.6)
[2018-10-17 06:32] LABS: CHLORIDE 101 mEq/L (98-107)
[2018-10-17 06:39] LABS: PHOSPHORUS 3.8 mg/dL (2.5-4.9)
[2018-10-17 08:00] VITALS: BP 141/59
[2018-10-17] MEDS: FOLIC ACID/VITAMIN B COMP W-C TABLET PO SCH (08:40)
[2018-10-17] MEDS: AMLODIPINE 10MG TABLET PO SCH (08:40)
[2018-10-17] MEDS: METOPROLOL TARTRATE 50MG TABLET PO SCH ×2 (08:40→22:08)
[2018-10-17] MEDS: SEVELAMER CARBONATE 800 MG TABLET PO SCH ×3 (08:40→17:29)
[2018-10-17] MEDS: PANTOPRAZOLE SODIUM 40 MG/VIAL IV SCH (08:41)
[2018-10-17] MEDS: METRONIDAZOLE 500 MG PREMIX 100 ML IV SCH (08:41)
[2018-10-17 10:11] LABS: PLATELET ESTIMATE NORMAL
[2018-10-17] MEDS: CEFTRIAXONE 2 G in DEXTROSE 5% WATER 50 ML IV SCH (11:20)
[2018-10-17 12:00] VITALS: BP 133/56
[2018-10-17] MEDS ORDERED: LACTULOSE 20G/30ML UDC PO ONE (15:45)
[2018-10-17 16:00] VITALS: BP 144/63
[2018-10-17] MEDS: DOCUSATE SODIUM 100MG CAPSULE PO SCH (17:29)
[2018-10-17 20:00] VITALS: BP 156/68
[2018-10-17] MEDS ORDERED: METRONIDAZOLE 500 MG PREMIX 100 ML IV SCH (21:00)
[2018-10-18] VITALS (7 sets, daily range): BP systolic 110–157; BP diastolic 60–75
[2018-10-18] MEDS: METRONIDAZOLE 500 MG PREMIX 100 ML IV SCH ×3 (05:45→20:52)
[2018-10-18] MEDS: MORPHINE SULFATE 4 MG/ML CPJ (NOT FOR IM USE) IV PRN ×3 (05:46→22:53)
[2018-10-18] MEDS: HYDRALAZINE HCL 100MG TABLET PO SCH ×3 (05:47→20:52)
[2018-10-18 06:40] LABS: HEMOGLOBIN. 9.4 g/dL (12.0-16.0); MEAN CORPUSCULAR HEMOGLOBIN 28.9 pg (28.0-32.0); MEAN CORPUSCULAR VOLUME 88.9 fL (81.0-99.0); PLATELET 339 x1000/uL (130-400); RED BLOOD CELL COUNT 3.26 mill/uL (4.2-5.4); RED CELL DISTRIBUTION WIDTH 15.2 % (11.6-14.6)
[2018-10-18] MEDS: PANTOPRAZOLE SODIUM 40 MG/VIAL IV SCH (08:52)
[2018-10-18] MEDS: METOPROLOL TARTRATE 50MG TABLET PO SCH ×2 (08:53→20:52)
[2018-10-18] MEDS: DOCUSATE SODIUM 100MG CAPSULE PO SCH ×2 (08:53→18:06)
[2018-10-18] MEDS: FOLIC ACID/VITAMIN B COMP W-C TABLET PO SCH (08:53)
[2018-10-18] MEDS: SEVELAMER CARBONATE 800 MG TABLET PO SCH ×3 (08:53→18:06)
[2018-10-18] MEDS: AMLODIPINE 10MG TABLET PO SCH (08:53)
[2018-10-18] MEDS: CEFTRIAXONE 2 G in DEXTROSE 5% WATER 50 ML IV SCH (12:11)
[2018-10-18 13:58] LABS: PLATELET ESTIMATE NORMAL
[2018-10-18] MEDS ORDERED: LACTULOSE 20G/30ML UDC PO NR (16:30)
[2018-10-18] MEDS: ACETAMINOPHEN 325MG TABLET PO PRN (21:03)
[2018-10-19] MEDS ORDERED: MORPHINE SULFATE 4 MG/ML CPJ (NOT FOR IM USE) IV PRN (01:00)
[2018-10-19 04:00] VITALS: BP 167/59
[2018-10-19 04:30] VITALS: BP 148/64
[2018-10-19 06:09] LABS: HEMATOCRIT. 26.3 % (36.0-48.0); HEMOGLOBIN. 8.6 g/dL (12.0-16.0); MEAN CORPUSCULAR HEMOGLOBIN 29.3 pg (28.0-32.0); MEAN CORPUSCULAR VOLUME 89.7 fL (81.0-99.0); MEAN PLATELET VOLUME 8.2 fl (7.4-10.4); PLATELET 326 x1000/uL (130-400); RED BLOOD CELL COUNT 2.93 mill/uL (4.2-5.4); RED CELL DISTRIBUTION WIDTH 15.1 % (11.6-14.6)
[2018-10-19 06:54] LABS: PHOSPHORUS 3.2 mg/dL (2.5-4.9)
[2018-10-19] MEDS: METRONIDAZOLE 500 MG PREMIX 100 ML IV SCH ×3 (07:08→21:31)
[2018-10-19] MEDS: HYDRALAZINE HCL 100MG TABLET PO SCH ×3 (07:08→21:31)
[2018-10-19 08:00] VITALS: BP 153/75
[2018-10-19] MEDS: DOCUSATE SODIUM 100MG CAPSULE PO SCH ×2 (09:15→17:53)
[2018-10-19] MEDS: AMLODIPINE 10MG TABLET PO SCH (09:15)
[2018-10-19] MEDS: METOPROLOL TARTRATE 50MG TABLET PO SCH ×2 (09:15→21:31)
[2018-10-19] MEDS: SEVELAMER CARBONATE 800 MG TABLET PO SCH ×3 (09:15→17:52)
[2018-10-19] MEDS: FOLIC ACID/VITAMIN B COMP W-C TABLET PO SCH (09:15)
[2018-10-19] MEDS: PANTOPRAZOLE SODIUM 40 MG/VIAL IV SCH (09:15)
[2018-10-19 09:33] LABS: PLATELET ESTIMATE NORMAL
[2018-10-19] MEDS: CEFTRIAXONE 2 G in DEXTROSE 5% WATER 50 ML IV SCH (10:38)
[2018-10-19 12:00] VITALS: BP 142/79
[2018-10-19] MEDS: LOSARTAN POTASSIUM 25 MG TABLET PO SCH (13:22)
[2018-10-19 16:00] VITALS: BP 145/58
[2018-10-19 20:00] VITALS: BP 151/73
[2018-10-19] MEDS: ACETAMINOPHEN 325MG TABLET PO PRN (21:40)
[2018-10-20] VITALS (8 sets, daily range): BP systolic 114–167; BP diastolic 51–70
[2018-10-20] MEDS: HYDRALAZINE 20MG/ML VIAL IV PRN (00:37)
[2018-10-20 05:25] LABS: MEAN CORPUSCULAR HEMOGLOBIN 29.7 pg (28.0-32.0); MEAN CORPUSCULAR VOLUME 89.3 fL (81.0-99.0); MEAN PLATELET VOLUME 7.9 fl (7.4-10.4); PLATELET 360 x1000/uL (130-400); RED BLOOD CELL COUNT 2.69 mill/uL (4.2-5.4)
[2018-10-20 05:39] LABS: PHOSPHORUS 3.1 mg/dL (2.5-4.9)
[2018-10-20] MEDS: METRONIDAZOLE 500 MG PREMIX 100 ML IV SCH ×3 (06:17→20:32)
[2018-10-20] MEDS: HYDRALAZINE HCL 100MG TABLET PO SCH ×2 (06:18→15:03)
[2018-10-20 08:32] LABS: PLATELET ESTIMATE NORMAL
[2018-10-20] MEDS: FOLIC ACID/VITAMIN B COMP W-C TABLET PO SCH (09:16)
[2018-10-20] MEDS: AMLODIPINE 10MG TABLET PO SCH (09:16)
[2018-10-20] MEDS: DOCUSATE SODIUM 100MG CAPSULE PO SCH (09:16)
[2018-10-20] MEDS: LOSARTAN POTASSIUM 25 MG TABLET PO SCH (09:16)
[2018-10-20] MEDS: SEVELAMER CARBONATE 800 MG TABLET PO SCH ×3 (09:27→18:10)
[2018-10-20] MEDS: METOPROLOL TARTRATE 50MG TABLET PO SCH (09:28)
[2018-10-20] MEDS: PANTOPRAZOLE SODIUM 40 MG/VIAL IV SCH (09:32)
[2018-10-20] MEDS: CEFTRIAXONE 2 G in DEXTROSE 5% WATER 50 ML IV SCH (12:55)
[2018-10-20] MEDS: ACETAMINOPHEN 325MG TABLET PO PRN (12:55)
[2018-10-20] MEDS ORDERED: HYDROCODONE/ACETAMINOPHEN 5/325MG TABLET PO PRN (14:45)
== END 2018-10-20 21:30 | DRG 710 ==
LOC: ER 09:17 → 6WST 16:57 → ENRESERV 22:50 → 6WST 10-08 00:22 → MICUSO 10-08 20:58 → 5EST 10-14 16:55 → 7WST 10-16 18:30
PROVIDERS: ADMIT Internal Medicine; ATTEND Internal Medicine
PROC: 0WJP0ZZ Inspection of Gastrointestinal Tract, Open Approach (ICD-10-PCS; principal; 2018-10-08)
PROC: 0DBN0ZZ Excision of Sigmoid Colon, Open Approach (ICD-10-PCS; 2018-10-08)
PROC: 0W9G0ZZ Drainage of Peritoneal Cavity, Open Approach (ICD-10-PCS; 2018-10-08)
PROC: 0D1N0Z4 Bypass Sigmoid Colon to Cutaneous, Open Approach (ICD-10-PCS; 2018-10-08)
PROC: 5A1955Z Respiratory Ventilation, Greater than 96 Consecutive Hours (ICD-10-PCS; 2018-10-08)
PROC: 02HV33Z Insertion of Infusion Device into Superior Vena Cava, Percutaneous Approach (ICD-10-PCS; 2018-10-09)
PROC: 5A1D70Z Performance of Urinary Filtration, Intermittent, Less than 6 Hours Per Day (ICD-10-PCS; 2018-10-09)
PROC: 5A1D70Z Performance of Urinary Filtration, Intermittent, Less than 6 Hours Per Day (ICD-10-PCS; 2018-10-10)
PROC: 30233N1 Transfusion of Nonautologous Red Blood Cells into Peripheral Vein, Percutaneous Approach (ICD-10-PCS; 2018-10-11)
PROC: 5A1D70Z Performance of Urinary Filtration, Intermittent, Less than 6 Hours Per Day (ICD-10-PCS; 2018-10-12)
PROC: 5A1D70Z Performance of Urinary Filtration, Intermittent, Less than 6 Hours Per Day (ICD-10-PCS; 2018-10-15)
PROC: 5A1D70Z Performance of Urinary Filtration, Intermittent, Less than 6 Hours Per Day (ICD-10-PCS; 2018-10-17)
PROC: 5A1D70Z Performance of Urinary Filtration, Intermittent, Less than 6 Hours Per Day (ICD-10-PCS; 2018-10-19)
DX: A41.4 Sepsis due to anaerobes (principal); K63.1 Perforation of intestine (nontraumatic); J96.00 Acute respiratory failure, unspecified whether with hypoxia or hypercapnia; N17.9 Acute kidney failure, unspecified; I13.2 Hypertensive heart and chronic kidney disease with heart failure and with stage 5 chronic kidney disease, or end stage renal disease; K65.9 Peritonitis, unspecified; L89.159 Pressure ulcer of sacral region, unspecified stage; J18.1 Lobar pneumonia, unspecified organism; E87.3 Alkalosis; N18.6 End stage renal disease; K56.7 Ileus, unspecified; E87.5 Hyperkalemia; I50.43 Acute on chronic combined systolic (congestive) and diastolic (congestive) heart failure; J44.9 Chronic obstructive pulmonary disease, unspecified; D64.9 Anemia, unspecified; K56.41 Fecal impaction; F41.9 Anxiety disorder, unspecified; E03.9 Hypothyroidism, unspecified; R65.20 Severe sepsis without septic shock; K91.89 Other postprocedural complications and disorders of digestive system; Z51.5 Encounter for palliative care; Z78.1 Physical restraint status; Z81.8 Family history of other mental and behavioral disorders; Z82.49 Family history of ischemic heart disease and other diseases of the circulatory system; Z99.2 Dependence on renal dialysis; Z87.891 Personal history of nicotine dependence; F03.90 Unspecified dementia, unspecified severity, without behavioral disturbance, psychotic disturbance, mood disturbance, and anxiety
CPT/HCPCS: 36415; 36569; 36600; 71045; 74018; 74021; 74176; 76937; 80048; 80061; 80202; 82375; 82570; 82607; 82728; 82746; 82805; 83036; 83540; 83550; 83605; 83615; 83735; 84100; 84134; 84156; 84300; 84439; 84443; 85014; 85018; 85027; 86705; 86709; 86803; 86850; 86900; 86920; 87070; 87075; 87076; 87077; 87106; 87186; 87340; 87389; 88307; 92610; 93005; 93306; 93970; 96374; 97162; 99285; A6261; C1752; C9113; J0330; J0360; J0696; J1160; J1644; J1885; J1956; J2060; J2185; J2250; J2270; J2370; J2405; J2543; J2704; J3010; J3370; J3490; J7030; J7050; J7060; P9016; P9041

== ENCOUNTER 2018-11-12 17:52 | Inpatient (IN) | payer MEDICARE, MEDICAID ==
[~2018-11-12] VITALS: Ht 175.3 cm; Wt 62.1 kg
[2018-11-12 18:21] LABS: HEMATOCRIT. 31.1 % (36.0-48.0); MEAN CORPUSCULAR HEMOGLOBIN 29.7 pg (28.0-32.0); MEAN CORPUSCULAR VOLUME 92.3 fL (81.0-99.0); MEAN PLATELET VOLUME 7.5 fl (7.4-10.4); PLATELET 473 x1000/uL (130-400); RED BLOOD CELL COUNT 3.37 mill/uL (4.2-5.4); RED CELL DISTRIBUTION WIDTH 16.6 % (11.6-14.6)
[2018-11-12 18:28] LABS: CHLORIDE 106 mEq/L (98-107)
[2018-11-12 18:36] LABS: PHOSPHORUS 1.9 mg/dL (2.5-4.9)
[2018-11-12 18:49] LABS: NUCLEATED RED BLOOD CELLS 2 /100 WBC; PLATELET ESTIMATE INCREASED
[2018-11-12 18:51] LABS: PARTIAL THROMBOPLASTIN TIME 27.1 sec (23.4-31.0); PROTHROMBIN TIME 10.6 sec (9.6-11.0)
[2018-11-12] MEDS ORDERED: LEVOFLOXACIN 500MG PREMIX 100 ML IV ONE (19:30)
[2018-11-12] MEDS ORDERED: PIPERACILLIN/TAZ 3.375G PREMIX 50 ML IV ONE (19:30)
[2018-11-12] MEDS ORDERED: ALBUTEROL (0.083%) 2.5MG/3ML NEB HHN STA (19:38)
[2018-11-13 11:08] VITALS: BP 126/62
[2018-11-13 12:00] VITALS: BP 126/62
[2018-11-13 13:02] LABS: HEMATOCRIT. 26.5 % (36.0-48.0); HEMOGLOBIN. 8.8 g/dL (12.0-16.0); MEAN CORPUSCULAR HEMOGLOBIN 30.2 pg (28.0-32.0); MEAN CORPUSCULAR VOLUME 90.7 fL (81.0-99.0); MEAN PLATELET VOLUME 7.5 fl (7.4-10.4); PLATELET 437 x1000/uL (130-400); RED BLOOD CELL COUNT 2.93 mill/uL (4.2-5.4); RED CELL DISTRIBUTION WIDTH 16.5 % (11.6-14.6)
[2018-11-13 13:06] LABS: CHLORIDE 105 mEq/L (98-107)
[2018-11-13] MEDS ORDERED: CLONIDINE 0.1MG TABLET PO PRN (13:30)
[2018-11-13] MEDS ORDERED: ACETAMINOPHEN 325MG TABLET PO PRN (13:30)
[2018-11-13] MEDS ORDERED: IPRATROPIUM/ALBUTEROL 0.5-3(2.5)MG/3ML NEB INH PRN (13:30)
[2018-11-13] MEDS ORDERED: ENOXAPARIN 40MG/0.4ML SYR SUBCUT SCH (13:30)
[2018-11-13] MEDS ORDERED: ONDANSETRON HCL 4MG/2ML INJ IV PRN (13:30)
[2018-11-13 13:54] LABS: NUCLEATED RED BLOOD CELLS 1 /100 WBC; PLATELET ESTIMATE INCREASED
[2018-11-13] MEDS ORDERED: ENOXAPARIN 30MG/0.3ML SYR SUBCUT SCH (14:00)
[2018-11-13 15:43] LABS: CREATINE KINASE 42 IU/L (26-192)
[2018-11-13 16:00] VITALS: BP 100/46
[2018-11-13 20:00] VITALS: BP 125/74
[2018-11-14] VITALS: BP 128/58
[2018-11-14 00:13] LABS: CREATINE KINASE 20 IU/L (26-192)
[2018-11-14] MEDS: HYDROCODONE/ACETAMINOPHEN 5/325MG TABLET PO PRN ×2 (00:53→11:20)
[2018-11-14 04:00] VITALS: BP 107/81
[2018-11-14 06:17] LABS: HEMATOCRIT. 25.6 % (36.0-48.0); HEMOGLOBIN. 8.3 g/dL (12.0-16.0); MEAN CORPUSCULAR HEMOGLOBIN 29.5 pg (28.0-32.0); MEAN CORPUSCULAR VOLUME 91.1 fL (81.0-99.0); RED BLOOD CELL COUNT 2.81 mill/uL (4.2-5.4); RED CELL DISTRIBUTION WIDTH 16.6 % (11.6-14.6)
[2018-11-14 06:39] LABS: T4 FREE 1.15 ng/dL (0.76-1.46)
[2018-11-14 06:40] LABS: PHOSPHORUS 2.2 mg/dL (2.5-4.9)
[2018-11-14 08:00] VITALS: BP 139/63
[2018-11-14 10:23] LABS: PLATELET 366 x1000/uL (130-400)
[2018-11-14 10:28] LABS: NUCLEATED RED BLOOD CELLS 2 /100 WBC; PLATELET ESTIMATE NORMAL
[2018-11-14 12:00] VITALS: BP 124/57
== END 2018-11-14 14:12 | disposition home health service (06) | DRG 194 ==
LOC: ER 17:52 → 7WST 20:46 → EDBEDREQ 20:49 → EDBEDREQTM 20:49 → ENRESERV 11-13 10:00
PROVIDERS: ADMIT Internal Medicine; ATTEND Internal Medicine
PROC: 5A1D70Z Performance of Urinary Filtration, Intermittent, Less than 6 Hours Per Day (ICD-10-PCS; principal; 2018-11-13)
PROC: 5A1D70Z Performance of Urinary Filtration, Intermittent, Less than 6 Hours Per Day (ICD-10-PCS; 2018-11-14)
PROC: 0WPFX0Z Removal of Drainage Device from Abdominal Wall, External Approach (ICD-10-PCS; 2018-11-14)
DX: I13.2 Hypertensive heart and chronic kidney disease with heart failure and with stage 5 chronic kidney disease, or end stage renal disease (principal); E43 Unspecified severe protein-calorie malnutrition; J18.9 Pneumonia, unspecified organism; J44.0 Chronic obstructive pulmonary disease with (acute) lower respiratory infection; N18.6 End stage renal disease; D64.9 Anemia, unspecified; F03.90 Unspecified dementia, unspecified severity, without behavioral disturbance, psychotic disturbance, mood disturbance, and anxiety; F41.9 Anxiety disorder, unspecified; I70.90 Unspecified atherosclerosis; I50.43 Acute on chronic combined systolic (congestive) and diastolic (congestive) heart failure; E03.9 Hypothyroidism, unspecified; Z87.891 Personal history of nicotine dependence; Z93.3 Colostomy status; Z99.2 Dependence on renal dialysis; Z68.20 Body mass index [BMI] 20.0-20.9, adult
CPT/HCPCS: 36415; 71045; 80048; 80061; 82550; 83735; 84100; 84439; 84443; 84484; 93005; 94640; 96365; 99285; J1650; J1956; J2543; J7611

== ENCOUNTER 2018-11-15 15:35 | Emergency (ER) | payer MEDICARE ==
[~2018-11-15] VITALS: Ht 165.1 cm; Wt 109.0 kg
[2018-11-15] MEDS ORDERED: ALBUTEROL (0.083%) 2.5MG/3ML NEB HHN STA (16:35)
[2018-11-15 16:47] LABS: HEMATOCRIT. 27.2 % (36.0-48.0); HEMOGLOBIN. 8.8 g/dL (12.0-16.0); MEAN CORPUSCULAR HEMOGLOBIN 29.5 pg (28.0-32.0); MEAN CORPUSCULAR VOLUME 91.1 fL (81.0-99.0); MEAN PLATELET VOLUME 7.5 fl (7.4-10.4); PLATELET 386 x1000/uL (130-400); RED BLOOD CELL COUNT 2.99 mill/uL (4.2-5.4); RED CELL DISTRIBUTION WIDTH 17.2 % (11.6-14.6)
[2018-11-15 16:51] LABS: CHLORIDE 103 mEq/L (98-107)
[2018-11-15] MEDS ORDERED: ALBUTEROL (0.083%) 2.5MG/3ML NEB ONE (16:52)
[2018-11-15 16:58] LABS: PHOSPHORUS 1.6 mg/dL (2.5-4.9)
[2018-11-15 16:59] LABS: PLATELET ESTIMATE NORMAL
[2018-11-15 17:03] LABS: INR 1.1; PROTHROMBIN TIME 11.8 sec (9.6-11.0)
[2018-11-15 17:08] LABS: PARTIAL THROMBOPLASTIN TIME 80.8 sec (23.4-31.0)
[2018-11-15 21:01] VITALS: BP 110/47
== END 2018-11-15 21:58 | disposition short-term general hospital (02) ==
LOC: ER 16:48 → EDBEDREQTM 17:49 → EDBEDREQ 17:49 → ENRESERV 20:26 → CANRESERV 20:26 → ER 21:58 → CANBEDREQ 11-16 06:23
DX: G93.89 Other specified disorders of brain (principal); J18.9 Pneumonia, unspecified organism; R65.10 Systemic inflammatory response syndrome (SIRS) of non-infectious origin without acute organ dysfunction; I12.0 Hypertensive chronic kidney disease with stage 5 chronic kidney disease or end stage renal disease; N18.6 End stage renal disease; D63.1 Anemia in chronic kidney disease; R10.2 Pelvic and perineal pain; F03.90 Unspecified dementia, unspecified severity, without behavioral disturbance, psychotic disturbance, mood disturbance, and anxiety; Z99.2 Dependence on renal dialysis; Z93.3 Colostomy status
CPT/HCPCS: 36415; 70450; 71045; 74176; 80048; 80053; 83690; 83735; 84100; 84484; 85025; 85610; 85730; 93005; 94640; 99285; J7611

== ENCOUNTER 2018-11-26 03:20 | Emergency (ER) | payer MEDICARE ==
[~2018-11-26] VITALS: Ht 170.2 cm; Wt 73.0 kg
[2018-11-26 05:17] LABS: HEMATOCRIT. 29.9 % (36.0-48.0); HEMOGLOBIN. 9.4 g/dL (12.0-16.0); MEAN CORPUSCULAR HEMOGLOBIN 28.7 pg (28.0-32.0); MEAN CORPUSCULAR VOLUME 90.9 fL (81.0-99.0); MEAN PLATELET VOLUME 7.2 fl (7.4-10.4); PLATELET 533 x1000/uL (130-400); RED BLOOD CELL COUNT 3.29 mill/uL (4.2-5.4); RED CELL DISTRIBUTION WIDTH 18.3 % (11.6-14.6)
[2018-11-26 05:18] LABS: CHLORIDE 106 mEq/L (98-107)
[2018-11-26 05:27] LABS: T4 FREE 1.04 ng/dL (0.76-1.46)
[2018-11-26] MEDS ORDERED: LEVOFLOXACIN 750MG PREMIX 150 ML IV ONE (06:30)
[2018-11-26] MEDS ORDERED: SODIUM CHLORIDE 0.9% 1000ML BAG (SEPSIS BOLUS) IV ONE (06:30)
[2018-11-26 06:34] LABS: D-DIMER 4.28 mg/L FEU (<0.50); INR 1.1; PARTIAL THROMBOPLASTIN TIME 29.4 sec (23.4-31.0); PROTHROMBIN TIME 11.4 sec (9.6-11.0)
[2018-11-26 10:18] LABS: NUCLEATED RED BLOOD CELLS 2 /100 WBC
[2018-11-26 10:19] LABS: PLATELET ESTIMATE INCREASED
[2018-11-26] MEDS ORDERED: LORAZEPAM 0.5MG TABLET PO ONE (12:00)
[2018-11-26 14:25] VITALS: BP 112/71
== END 2018-11-26 14:50 | disposition left against medical advice (07) ==
LOC: ER 03:20 → EDBEDREQ 11:43 → ENRESERV 14:35 → CANRESERV 14:35 → ER 14:50 → CANBEDREQ 19:34
DX: R06.02 Shortness of breath (principal); R91.8 Other nonspecific abnormal finding of lung field; F41.9 Anxiety disorder, unspecified; I10 Essential (primary) hypertension
CPT/HCPCS: 36415; 71045; 78582; 80053; 83605; 83880; 84439; 84443; 84484; 85025; 85379; 85610; 85730; 87040; 93005; 93970; 96365; 99284; A9540; A9558; J1956; J7030; Z7610

== ENCOUNTER 2018-12-11 12:54 | Inpatient (IN) | payer MEDICARE ==
[~2018-12-11] VITALS: Ht 165.1 cm; Wt 73.0 kg
[2018-12-11 13:42] LABS: BG CARBOXYHEMOGLOBIN 0.9 % (0.5-1.5); BG DEOXYHEMOGLOBIN 7.3 % (0.0-5.0); BG FRACTION INSPIRED OXYGEN 21; BG OXYGEN SATURATION 92.6 % (92.0-98.5); BG OXYHEMOGLOBIN 91.8 % (94.0-97.0); BG PCO2 33.2 mmHg (35.0-45.0); BG PH 7.494 (7.350-7.450); BG PO2 60.1 mmHg (75.0-100.0); BG SAMPLE SITE RIGHT BRACHIAL; BG TOTAL HEMOGLOBIN 11.1 g/dL (12.0-18.0); BG VENT MODE ROOM AIR
[2018-12-11 13:47] LABS: BASOPHILS % 0.7 % (0.0-2.0); EOSINOPHILS % 2.3 % (0.0-5.0); HEMATOCRIT. 31.2 % (36.0-48.0); LYMPHOCYTES % 14.5 % (20.0-50.0); MEAN CORPUSCULAR HEMOGLOBIN 29.1 pg (28.0-32.0); MEAN CORPUSCULAR VOLUME 90.5 fL (81.0-99.0); MEAN PLATELET VOLUME 7.8 fl (7.4-10.4); MONOCYTES % 13.9 % (2.0-8.0); NEUTROPHILS % 68.6 % (40.0-76.0); PLATELET 414 x1000/uL (130-400); RED BLOOD CELL COUNT 3.44 mill/uL (4.2-5.4); RED CELL DISTRIBUTION WIDTH 19.9 % (11.6-14.6)
[2018-12-11 13:54] LABS: CHLORIDE 106 mEq/L (98-107)
[2018-12-11 13:58] LABS: ETHANOL BLOOD < 10 mg/dL
[2018-12-11] MEDS ORDERED: SODIUM CHLORIDE 0.9% 500 ML IV ONE (14:02)
[2018-12-11 14:12] LABS: CREATINE KINASE 82 IU/L (26-192)
[2018-12-11 14:13] LABS: CREATINE KINASE MB FRACTION < 1.0 ng/mL (0.5-3.6)
[2018-12-11] MEDS ORDERED: PIPERACILLIN/TAZ 3.375G PREMIX 50 ML IV ONE (14:15)
[2018-12-11] MEDS ORDERED: VANCOMYCIN 1 G PREMIX 200 ML IV ONE (14:15)
[2018-12-11 14:19] LABS: INR 1.2; PROTHROMBIN TIME 12.8 sec (9.6-11.0)
[2018-12-11 14:28] LABS: PARTIAL THROMBOPLASTIN TIME > 200.0 sec (23.4-31.0)
[2018-12-11 15:43] LABS: INR 1.2; PROTHROMBIN TIME 12.4 sec (9.6-11.0)
[2018-12-11 15:47] LABS: PARTIAL THROMBOPLASTIN TIME > 200.0 sec (23.4-31.0)
[2018-12-11 17:49] LABS: BG BASE EXCESS 0.2 mmol/L (-2.0-2.0); BG CARBOXYHEMOGLOBIN 0.9 % (0.5-1.5); BG DEOXYHEMOGLOBIN 6.4 % (0.0-5.0); BG FRACTION INSPIRED OXYGEN 21; BG HCO3 ACT 23.3 mmol/L (22.0-26.0); BG METHEMOGLOBIN 0.2 % (0.0-1.5); BG OXYGEN SATURATION 93.5 % (92.0-98.5); BG OXYHEMOGLOBIN 92.5 % (94.0-97.0); BG PCO2 32.1 mmHg (35.0-45.0); BG PH 7.478 (7.350-7.450); BG PO2 66.7 mmHg (75.0-100.0); BG SAMPLE SITE PA LINE; BG TOTAL HEMOGLOBIN 10.7 g/dL (12.0-18.0); BG VENT MODE ROOM AIR
[2018-12-11 20:45] VITALS: BP 122/57
[2018-12-11 21:00] VITALS: BP 122/57
[2018-12-11 22:00] VITALS: BP 125/57
[2018-12-11] MEDS ORDERED: ACETAMINOPHEN 650MG SUPP PR PRN (22:15)
[2018-12-11] MEDS ORDERED: IPRATROPIUM/ALBUTEROL 0.5-3(2.5)MG/3ML NEB INH PRN (22:15)
[2018-12-11] MEDS ORDERED: PIPERACILLIN/TAZ 3.375G PREMIX 50 ML IV SCH (22:15)
[2018-12-11] MEDS ORDERED: ONDANSETRON HCL 4MG/2ML INJ IV PRN (22:15)
[2018-12-11] MEDS ORDERED: MORPHINE SULFATE 2 MG/ML CPJ (NOT FOR IM USE) IV PRN (22:15)
[2018-12-11] MEDS: DEXT 5%/0.45% NACL 1000ML 1,000 ML IV SCH (23:22)
[2018-12-11] MEDS: PIPERACILLIN/TAZ 2.25G PREMIX 50 ML IV SCH (23:38)
[2018-12-11] MEDS: FAMOTIDINE 20MG/2ML VIAL IV SCH (23:38)
[2018-12-12] VITALS (15 sets, daily range): BP systolic 114–147; BP diastolic 53–78
[2018-12-12] MEDS ORDERED: VANCOMYCIN 1 G PREMIX 200 ML IV NR
[2018-12-12] MEDS: PIPERACILLIN/TAZ 2.25G PREMIX 50 ML IV SCH ×3 (06:21→21:36)
[2018-12-12 07:26] LABS: CHLORIDE 102 mEq/L (98-107)
[2018-12-12 07:30] LABS: HEMATOCRIT. 26.9 % (36.0-48.0); HEMOGLOBIN. 8.6 g/dL (12.0-16.0); MEAN CORPUSCULAR HEMOGLOBIN 29.4 pg (28.0-32.0); MEAN CORPUSCULAR VOLUME 91.7 fL (81.0-99.0); MEAN PLATELET VOLUME 7.9 fl (7.4-10.4); PLATELET 376 x1000/uL (130-400); RED BLOOD CELL COUNT 2.93 mill/uL (4.2-5.4); RED CELL DISTRIBUTION WIDTH 19.2 % (11.6-14.6)
[2018-12-12 07:56] LABS: T4 FREE 1.11 ng/dL (0.76-1.46)
[2018-12-12 07:58] LABS: CREATINE KINASE 41 IU/L (26-192)
[2018-12-12] MEDS: HEPARIN 5000 UNITS/ML VIAL SUBCUT SCH ×2 (09:00→09:54)
[2018-12-12] MEDS: FAMOTIDINE 20MG/2ML VIAL IV SCH ×2 (09:00→09:53)
[2018-12-12] MEDS: DEXT 5%/0.45% NACL 1000ML 1,000 ML IV SCH (13:48)
[2018-12-12] MEDS: LACTULOSE 20G/30ML UDC PO SCH ×2 (14:20→21:36)
[2018-12-12] MEDS: FOLIC ACID/VITAMIN B COMP W-C TABLET PO SCH (14:36)
[2018-12-12] MEDS ORDERED: SODIUM CHLORIDE 10% FOR INH 15ML VIAL NEB INH SCH (15:00)
[2018-12-12 18:04] LABS: PLATELET ESTIMATE NORMAL
[2018-12-12 20:31] LABS: CREATINE KINASE 32 IU/L (26-192)
[2018-12-13] VITALS: BP 135/71
[2018-12-13 04:00] VITALS: BP 155/80
[2018-12-13] MEDS: LACTULOSE 20G/30ML UDC PO SCH (06:15)
[2018-12-13 07:17] LABS: BASOPHILS % 0.8 % (0.0-2.0); EOSINOPHILS % 7.2 % (0.0-5.0); HEMATOCRIT. 27.7 % (36.0-48.0); HEMOGLOBIN. 8.9 g/dL (12.0-16.0); LYMPHOCYTES % 16.3 % (20.0-50.0); MEAN CORPUSCULAR HEMOGLOBIN 29.3 pg (28.0-32.0); MEAN CORPUSCULAR VOLUME 90.8 fL (81.0-99.0); MEAN PLATELET VOLUME 7.8 fl (7.4-10.4); MONOCYTES % 13.9 % (2.0-8.0); NEUTROPHILS % 61.8 % (40.0-76.0); PLATELET 407 x1000/uL (130-400); RED BLOOD CELL COUNT 3.06 mill/uL (4.2-5.4); RED CELL DISTRIBUTION WIDTH 18.8 % (11.6-14.6)
[2018-12-13 07:40] LABS: PHOSPHORUS 4.3 mg/dL (2.5-4.9)
[2018-12-13 08:00] VITALS: BP 122/57
[2018-12-13] MEDS: PIPERACILLIN/TAZ 2.25G PREMIX 50 ML IV SCH (09:17)
[2018-12-13] MEDS: FAMOTIDINE 20MG/2ML VIAL IV SCH (09:17)
[2018-12-13] MEDS: FOLIC ACID/VITAMIN B COMP W-C TABLET PO SCH ×2 (09:17→09:29)
[2018-12-13 12:00] VITALS: BP 121/55
[2018-12-13] MEDS ORDERED: SEVELAMER CARBONATE 800 MG TABLET PO SCH (12:40)
[2018-12-13] MEDS ORDERED: CEFEPIME 1,000 MG in DEXTROSE 5% WATER 50 ML IV SCH ×2 (13:15→15:00)
[2018-12-13] MEDS ORDERED: LIDOCAINE HCL 1% 20ML VIAL (Pyxis) INJ ONE (13:33)
[2018-12-13] MEDS ORDERED: SODIUM BICARBONATE 4% (2.4MEQ) 5ML VIAL IV ONE (13:33)
[2018-12-13 16:51] VITALS: BP 140/65
[2018-12-13 18:49] VITALS: BP 140/65
[2018-12-13] MEDS ORDERED: EPOETIN ALFA 4000UNITS/ML VIAL SUBCUT SCH (21:00)
== END 2018-12-13 20:30 | DRG 139 ==
LOC: ER 13:20 → 5EST 16:45 → EDBEDREQSVC 17:34 → ENRESERV 19:33 → 8WST 12-12 16:46
PROVIDERS: ADMIT Internal Medicine; ATTEND Internal Medicine
PROC: 5A1D70Z Performance of Urinary Filtration, Intermittent, Less than 6 Hours Per Day (ICD-10-PCS; 2018-12-12)
PROC: 02HV33Z Insertion of Infusion Device into Superior Vena Cava, Percutaneous Approach (ICD-10-PCS; principal; 2018-12-13)
PROC: B518ZZA Fluoroscopy of Superior Vena Cava, Guidance (ICD-10-PCS; 2018-12-13)
PROC: B548ZZA Ultrasonography of Superior Vena Cava, Guidance (ICD-10-PCS; 2018-12-13)
DX: J18.1 Lobar pneumonia, unspecified organism (principal); I13.2 Hypertensive heart and chronic kidney disease with heart failure and with stage 5 chronic kidney disease, or end stage renal disease; G93.40 Encephalopathy, unspecified; E44.0 Moderate protein-calorie malnutrition; L89.159 Pressure ulcer of sacral region, unspecified stage; E72.20 Disorder of urea cycle metabolism, unspecified; I42.0 Dilated cardiomyopathy; J44.0 Chronic obstructive pulmonary disease with (acute) lower respiratory infection; N18.6 End stage renal disease; I50.43 Acute on chronic combined systolic (congestive) and diastolic (congestive) heart failure; D63.1 Anemia in chronic kidney disease; F03.90 Unspecified dementia, unspecified severity, without behavioral disturbance, psychotic disturbance, mood disturbance, and anxiety; R26.9 Unspecified abnormalities of gait and mobility; E03.9 Hypothyroidism, unspecified; E78.5 Hyperlipidemia, unspecified; F41.9 Anxiety disorder, unspecified; N25.81 Secondary hyperparathyroidism of renal origin; Z87.891 Personal history of nicotine dependence; Z99.2 Dependence on renal dialysis; Z93.3 Colostomy status; R65.10 Systemic inflammatory response syndrome (SIRS) of non-infectious origin without acute organ dysfunction
CPT/HCPCS: 36415; 36569; 36573; 36600; 71045; 80048; 80202; 80320; 82140; 82375; 82550; 82553; 82805; 82962; 83605; 83735; 83880; 84100; 84439; 84443; 84484; 92610; 93005; 96365; 96367; 97162; 99285; C1725; C1893; J0692; J0885; J1644; J2543; J3370; J3490; J7040; J7060; J7131; J7620; G0480

== ENCOUNTER 2019-06-04 11:30 | Inpatient (IN) | payer MEDICARE, MEDICAID ==
[~2019-06-04] VITALS: Ht 165.1 cm; Wt 64.9 kg
[2019-06-04] MEDS ORDERED: ACETAMINOPHEN WITH CODEINE 300/30MG TABLET PO STA (12:27)
[2019-06-04 12:53] LABS: BASOPHILS % 0.7 % (0.0-2.0); EOSINOPHILS % 4.3 % (0.0-5.0); HEMATOCRIT. 33.6 % (36.0-48.0); LYMPHOCYTES % 27.3 % (20.0-50.0); MEAN CORPUSCULAR HEMOGLOBIN 31.9 pg (28.0-32.0); MEAN CORPUSCULAR VOLUME 97.2 fL (81.0-99.0); MEAN PLATELET VOLUME 8.7 fl (7.4-10.4); MONOCYTES % 9.4 % (2.0-8.0); NEUTROPHILS % 58.3 % (40.0-76.0); PLATELET 194 x1000/uL (130-400); RED BLOOD CELL COUNT 3.46 mill/uL (4.2-5.4); RED CELL DISTRIBUTION WIDTH 15.6 % (11.6-14.6)
[2019-06-04 12:59] LABS: CHLORIDE 108 mEq/L (98-107)
[2019-06-04] MEDS ORDERED: HYDRALAZINE 20MG/ML VIAL IV ONE (15:30)
[2019-06-04] MEDS ORDERED: CLONIDINE 0.1MG TABLET PO PRN (16:00)
[2019-06-04] MEDS ORDERED: ACETAMINOPHEN 325MG TABLET PO PRN (16:00)
[2019-06-04] MEDS ORDERED: DOCUSATE SODIUM 100MG CAPSULE PO PRN (16:00)
[2019-06-04] MEDS ORDERED: ACETAMINOPHEN 650MG SUPP PR PRN (16:00)
[2019-06-04] MEDS ORDERED: ONDANSETRON HCL 4MG/2ML INJ IV PRN (16:00)
[2019-06-04] MEDS ORDERED: HYDROCODONE/ACETAMINOPHEN 5/325MG TABLET PO PRN (16:00)
[2019-06-04] MEDS ORDERED: DIPHENHYDRAMINE 50MG/ML VIAL IV PRN (16:00)
[2019-06-04] MEDS ORDERED: NA PHOS,M-B/NA PHOS,DI-BA ENEMA 118ML PR PRN (16:00)
[2019-06-04] MEDS ORDERED: MAGNESIUM/ALUMINUM HYDROXIDE/SIMETHICONE 30ML UDC PO PRN (16:00)
[2019-06-04] MEDS ORDERED: LORAZEPAM 0.5MG TABLET PO PRN (16:00)
[2019-06-04] MEDS ORDERED: IPRATROPIUM/ALBUTEROL 0.5-3(2.5)MG/3ML NEB NEB PRN (16:00)
[2019-06-04] MEDS ORDERED: GUAIFENESIN 200MG/10ML SUGAR FREE UDC PO PRN (16:00)
[2019-06-04] MEDS ORDERED: LOSARTAN POTASSIUM 50 MG TABLET PO SCH (16:15)
[2019-06-04 20:15] VITALS: BP 118/76
[2019-06-04 22:07] VITALS: BP 118/76
[2019-06-04] MEDS: HYDRALAZINE HCL 50MG TABLET PO SCH (22:18)
[2019-06-05] VITALS (7 sets, daily range): BP systolic 140–168; BP diastolic 60–77
[2019-06-05] MEDS ORDERED: TRAM50TA PO (00:32)
[2019-06-05] MEDS ORDERED: ACET-2708 PO (00:32)
[2019-06-05] MEDS ORDERED: MOM PO (00:32)
[2019-06-05] MEDS ORDERED: TIZA2TAB5 PO (00:32)
[2019-06-05] MEDS ORDERED: SEVE800T8 PO (00:32)
[2019-06-05] MEDS ORDERED: FAMO20TA8 PO (00:32)
[2019-06-05] MEDS ORDERED: ASCO125T PO ×2 (00:32)
[2019-06-05] MEDS ORDERED: NEPVIT PO (00:32)
[2019-06-05] MEDS ORDERED: LEVO25TA2 PO (00:32)
[2019-06-05] MEDS ORDERED: TIZA2CAP7 PO (00:32)
[2019-06-05] MEDS ORDERED: DIPH25TA62 PO (00:32)
[2019-06-05] MEDS ORDERED: MAGN30OR PO (00:57)
[2019-06-05] MEDS: HYDRALAZINE HCL 50MG TABLET PO SCH ×2 (06:00→15:05)
[2019-06-05 07:31] LABS: CHLORIDE 109 mEq/L (98-107)
[2019-06-05 07:37] LABS: PHOSPHORUS 2.3 mg/dL (2.5-4.9)
[2019-06-05 07:38] LABS: LDL CHOLESTEROL 64 mg/dL (5-100)
[2019-06-05 07:40] LABS: HDL CHOLESTEROL 51 mg/dL (40-59); T4 FREE 0.78 ng/dL (0.76-1.46)
[2019-06-05 07:48] LABS: BASOPHILS % 1.1 % (0.0-2.0); EOSINOPHILS % 3.6 % (0.0-5.0); HEMOGLOBIN. 11.3 g/dL (12.0-16.0); LYMPHOCYTES % 24.3 % (20.0-50.0); MEAN CORPUSCULAR HEMOGLOBIN 31.7 pg (28.0-32.0); MEAN CORPUSCULAR VOLUME 95.7 fL (81.0-99.0); MEAN PLATELET VOLUME 8.4 fl (7.4-10.4); MONOCYTES % 8.2 % (2.0-8.0); NEUTROPHILS % 62.8 % (40.0-76.0); PLATELET 208 x1000/uL (130-400); RED BLOOD CELL COUNT 3.55 mill/uL (4.2-5.4); RED CELL DISTRIBUTION WIDTH 15.5 % (11.6-14.6)
[2019-06-05] MEDS ORDERED: HYDRALAZINE 20MG/ML VIAL IV NR (18:15)
[2019-06-05] MEDS ORDERED: AMLODIPINE 5MG TABLET PO NR (18:15)
[2019-06-05] MEDS ORDERED: NITROGLYCERIN OINT 1GM/INCH UDPKT TD SCH (22:00)
== END 2019-06-05 22:42 | DRG 194 ==
LOC: ER 11:41 → SUPCPDRO 14:55 → 7WST 15:17 → EDBEDREQ 15:18 → ENRESERV 19:04
PROVIDERS: ADMIT Internal Medicine; ATTEND Internal Medicine
PROC: 5A1D70Z Performance of Urinary Filtration, Intermittent, Less than 6 Hours Per Day (ICD-10-PCS; principal; 2019-06-05)
DX: I13.2 Hypertensive heart and chronic kidney disease with heart failure and with stage 5 chronic kidney disease, or end stage renal disease (principal); G93.40 Encephalopathy, unspecified; N18.6 End stage renal disease; I42.0 Dilated cardiomyopathy; J44.9 Chronic obstructive pulmonary disease, unspecified; F03.90 Unspecified dementia, unspecified severity, without behavioral disturbance, psychotic disturbance, mood disturbance, and anxiety; K21.9 Gastro-esophageal reflux disease without esophagitis; I50.43 Acute on chronic combined systolic (congestive) and diastolic (congestive) heart failure; D63.1 Anemia in chronic kidney disease; R26.9 Unspecified abnormalities of gait and mobility; E03.9 Hypothyroidism, unspecified; F41.9 Anxiety disorder, unspecified; Z79.899 Other long term (current) drug therapy; Z99.2 Dependence on renal dialysis; Z93.3 Colostomy status; Z87.891 Personal history of nicotine dependence
CPT/HCPCS: 36415; 71045; 80061; 83735; 84100; 84439; 84443; 93005; 96374; 99291; C1893; J0360

== ENCOUNTER 2019-07-26 18:17 | Inpatient (IN) | payer MEDICARE, MEDICAID ==
[~2019-07-26] VITALS: Ht 170.2 cm; Wt 61.2 kg
[~2019-07-26 18:17] MED LIST: ACET-2708 PO; ASCO125T PO; DIPH25TA62 PO; FAMO20TA8 PO; LEVO25TA2 PO; MAGN30OR PO; MOM PO; NEPVIT PO; SEVE800T8 PO; TIZA2CAP7 PO; TIZA2TAB5 PO; TRAM50TA PO
[2019-07-26] MEDS ORDERED: ACETAMINOPHEN 325MG TABLET PO STA (20:58)
[2019-07-26] MEDS ORDERED: SODIUM CHLORIDE 0.9% 1,000 ML IV ONE (20:58)
[2019-07-26 22:09] LABS: BASOPHILS % 1.2 % (0.0-2.0); EOSINOPHILS % 5.7 % (0.0-5.0); HEMATOCRIT. 32.2 % (36.0-48.0); HEMOGLOBIN. 10.7 g/dL (12.0-16.0); LYMPHOCYTES % 23.1 % (20.0-50.0); MEAN CORPUSCULAR HEMOGLOBIN 30.8 pg (28.0-32.0); MEAN CORPUSCULAR VOLUME 92.3 fL (81.0-99.0); MEAN PLATELET VOLUME 8.2 fl (7.4-10.4); MONOCYTES % 12.4 % (2.0-8.0); NEUTROPHILS % 57.6 % (40.0-76.0); PLATELET 243 x1000/uL (130-400); RED BLOOD CELL COUNT 3.48 mill/uL (4.2-5.4); RED CELL DISTRIBUTION WIDTH 15.7 % (11.6-14.6)
[2019-07-26 22:12] LABS: CHLORIDE 105 mEq/L (98-107)
[2019-07-26] MEDS ORDERED: PIPERACILLIN/TAZ 3.375G PREMIX 50 ML IV ONE (23:00)
[2019-07-26] MEDS ORDERED: VANCOMYCIN 1 G PREMIX 200 ML IV ONE (23:00)
[2019-07-27] MEDS ORDERED: ASPIRIN 81MG TABLET PO ONE
[2019-07-27] MEDS: CLONIDINE 0.2MG TABLET PO PRN ×2 (04:00→18:14)
[2019-07-27] MEDS ORDERED: LINEZOLID 600 MG PREMIX 300 ML IV SCH ×2 (06:00→06:15)
[2019-07-27] MEDS ORDERED: HYDRALAZINE 20MG/ML VIAL IV SCH (10:45)
[2019-07-27] MEDS ORDERED: MORPHINE SULFATE 2 MG/ML CPJ (NOT FOR IM USE) IV SCH (10:45)
[2019-07-27] MEDS ORDERED: CLONIDINE 0.1MG TABLET PO PRN (11:00)
[2019-07-27] MEDS ORDERED: ONDANSETRON HCL 4MG/2ML INJ IV PRN (11:00)
[2019-07-27] MEDS ORDERED: NA PHOS,M-B/NA PHOS,DI-BA ENEMA 118ML PR PRN (11:00)
[2019-07-27] MEDS ORDERED: GUAIFENESIN 200MG/10ML SUGAR FREE UDC PO PRN (11:00)
[2019-07-27] MEDS ORDERED: DIPHENHYDRAMINE 50MG/ML VIAL IV PRN (11:00)
[2019-07-27] MEDS ORDERED: IPRATROPIUM/ALBUTEROL 0.5-3(2.5)MG/3ML NEB NEB PRN (11:00)
[2019-07-27] MEDS ORDERED: MAGNESIUM/ALUMINUM HYDROXIDE/SIMETHICONE 30ML UDC PO PRN (11:00)
[2019-07-27] MEDS ORDERED: DOCUSATE SODIUM 100MG CAPSULE PO PRN (11:00)
[2019-07-27] MEDS ORDERED: ACETAMINOPHEN 650MG SUPP PR PRN (11:00)
[2019-07-27] MEDS ORDERED: LORAZEPAM 0.5MG TABLET PO PRN (11:00)
[2019-07-27] MEDS ORDERED: MAGNESIUM HYDROXIDE 400MG/5ML 30ML UDC PO PRN (13:15)
[2019-07-27] MEDS: LOSARTAN POTASSIUM 50 MG TABLET PO SCH (13:51)
[2019-07-27] MEDS: HYDRALAZINE HCL 50MG TABLET PO SCH ×2 (14:00→22:00)
[2019-07-27] MEDS: LEVOFLOXACIN 500MG PREMIX 100 ML IV NR ×2 (14:08→14:11)
[2019-07-27] MEDS ORDERED: SEVELAMER CARBONATE 800 MG TABLET PO NR (17:00)
[2019-07-27] MEDS ORDERED: HYDRALAZINE 20MG/ML VIAL IV PRN (17:00)
[2019-07-27] MEDS ORDERED: AMLODIPINE 5MG TABLET PO NR (21:45)
[2019-07-28] VITALS (7 sets, daily range): BP systolic 131–213; BP diastolic 57–90
[2019-07-28] MEDS ORDERED: HYDRALAZINE 20MG/ML VIAL IV PRN
[2019-07-28] MEDS: CLONIDINE 0.2MG TABLET PO PRN ×2 (00:25→09:26)
[2019-07-28] MEDS: ACETAMINOPHEN 325MG TABLET PO PRN ×2 (03:21→19:16)
[2019-07-28] MEDS: HYDRALAZINE HCL 50MG TABLET PO SCH ×3 (05:31→21:14)
[2019-07-28] MEDS: FAMOTIDINE 20MG TABLET PO SCH (05:31)
[2019-07-28] MEDS: LEVOTHYROXINE SODIUM 25MCG TABLET PO SCH ×2 (07:40→09:10)
[2019-07-28] MEDS: SEVELAMER CARBONATE 800 MG TABLET PO SCH ×4 (08:10→17:26)
[2019-07-28] MEDS: LOSARTAN POTASSIUM 50 MG TABLET PO SCH ×2 (09:00→09:09)
[2019-07-28] MEDS: ASCORBIC ACID 250 MG TABLET PO SCH ×2 (09:00→09:09)
[2019-07-28] MEDS: AMLODIPINE 5MG TABLET PO SCH ×2 (09:11→21:14)
[2019-07-28 10:59] LABS: BASOPHILS % 1.2 % (0.0-2.0); EOSINOPHILS % 6.5 % (0.0-5.0); HEMOGLOBIN. 10.9 g/dL (12.0-16.0); LYMPHOCYTES % 13.2 % (20.0-50.0); MEAN CORPUSCULAR HEMOGLOBIN 31.2 pg (28.0-32.0); MEAN CORPUSCULAR VOLUME 91.8 fL (81.0-99.0); MEAN PLATELET VOLUME 8.2 fl (7.4-10.4); MONOCYTES % 9.1 % (2.0-8.0); PLATELET 247 x1000/uL (130-400); RED BLOOD CELL COUNT 3.49 mill/uL (4.2-5.4); RED CELL DISTRIBUTION WIDTH 15.8 % (11.6-14.6)
[2019-07-28 11:17] LABS: CHLORIDE 106 mEq/L (98-107)
[2019-07-28 11:24] LABS: LDL CHOLESTEROL 60 mg/dL (5-100); PHOSPHORUS 1.6 mg/dL (2.5-4.9)
[2019-07-28 11:26] LABS: HDL CHOLESTEROL 39 mg/dL (40-59); T4 FREE 0.92 ng/dL (0.76-1.46)
[2019-07-28] MEDS: TIZANIDINE HCL 2MG TABLET PO SCH (14:06)
[2019-07-28] MEDS: FOLIC ACID/VITAMIN B COMP W-C TABLET PO SCH (14:06)
[2019-07-28] MEDS: HYDROCODONE/ACETAMINOPHEN 5/325MG TABLET PO PRN (22:38)
[2019-07-29] VITALS: BP 153/68
[2019-07-29] MEDS: ACETAMINOPHEN 325MG TABLET PO PRN (01:52)
[2019-07-29] MEDS: ENOXAPARIN 30MG/0.3ML SYR SUBCUT SCH ×2 (02:00→21:00)
[2019-07-29 04:00] VITALS: BP 152/64
[2019-07-29] MEDS: HYDRALAZINE HCL 50MG TABLET PO SCH ×3 (06:00→21:14)
[2019-07-29] MEDS: FAMOTIDINE 20MG TABLET PO SCH (06:30)
[2019-07-29] MEDS: LEVOTHYROXINE SODIUM 25MCG TABLET PO SCH ×2 (06:40→09:11)
[2019-07-29 06:55] LABS: EOSINOPHILS % 5.5 % (0.0-5.0); HEMATOCRIT. 30.7 % (36.0-48.0); HEMOGLOBIN. 10.6 g/dL (12.0-16.0); LYMPHOCYTES % 18.2 % (20.0-50.0); MEAN CORPUSCULAR HEMOGLOBIN 31.5 pg (28.0-32.0); MEAN CORPUSCULAR VOLUME 91.2 fL (81.0-99.0); MEAN PLATELET VOLUME 8.2 fl (7.4-10.4); NEUTROPHILS % 63.3 % (40.0-76.0); PLATELET 263 x1000/uL (130-400); RED BLOOD CELL COUNT 3.37 mill/uL (4.2-5.4); RED CELL DISTRIBUTION WIDTH 15.4 % (11.6-14.6)
[2019-07-29] MEDS: HYDROCODONE/ACETAMINOPHEN 5/325MG TABLET PO PRN (07:30)
[2019-07-29 07:47] LABS: PHOSPHORUS 2.9 mg/dL (2.5-4.9)
[2019-07-29 08:00] VITALS: BP 162/81
[2019-07-29] MEDS: ASCORBIC ACID 250 MG TABLET PO SCH (09:00)
[2019-07-29] MEDS: LOSARTAN POTASSIUM 50 MG TABLET PO SCH (09:00)
[2019-07-29] MEDS: AMLODIPINE 5MG TABLET PO SCH ×2 (09:11→21:13)
[2019-07-29] MEDS: SEVELAMER CARBONATE 800 MG TABLET PO SCH ×3 (09:11→18:36)
[2019-07-29] MEDS: CLONIDINE 0.2MG TABLET PO PRN (09:12)
[2019-07-29] MEDS ORDERED: LEVOFLOXACIN 250MG PREMIX 50 ML IV SCH ×2 (11:00→14:00)
[2019-07-29 12:00] VITALS: BP 128/55
[2019-07-29] MEDS ORDERED: LEVOFLOXACIN 250MG TABLET PO SCH (12:15)
[2019-07-29] MEDS: FOLIC ACID/VITAMIN B COMP W-C TABLET PO SCH (13:00)
[2019-07-29] MEDS: TIZANIDINE HCL 2MG TABLET PO SCH (13:30)
[2019-07-29 16:00] VITALS: BP 147/59
[2019-07-29 20:00] VITALS: BP 166/66
[2019-07-30] VITALS (7 sets, daily range): BP systolic 108–201; BP diastolic 63–103
[2019-07-30] MEDS: HYDRALAZINE HCL 50MG TABLET PO SCH ×2 (05:27→14:30)
[2019-07-30] MEDS: CLONIDINE 0.2MG TABLET PO PRN ×2 (05:27→14:30)
[2019-07-30] MEDS: FAMOTIDINE 20MG TABLET PO SCH (05:31)
[2019-07-30] MEDS: ASCORBIC ACID 250 MG TABLET PO SCH (09:00)
[2019-07-30] MEDS: AMLODIPINE 5MG TABLET PO SCH (09:00)
[2019-07-30] MEDS: LOSARTAN POTASSIUM 50 MG TABLET PO SCH (09:00)
[2019-07-30 09:27] LABS: EOSINOPHILS % 6.3 % (0.0-5.0); HEMATOCRIT. 34.6 % (36.0-48.0); HEMOGLOBIN. 11.6 g/dL (12.0-16.0); LYMPHOCYTES % 21.7 % (20.0-50.0); MEAN CORPUSCULAR HEMOGLOBIN 31.1 pg (28.0-32.0); MEAN CORPUSCULAR VOLUME 92.3 fL (81.0-99.0); MEAN PLATELET VOLUME 8.1 fl (7.4-10.4); MONOCYTES % 11.3 % (2.0-8.0); NEUTROPHILS % 59.7 % (40.0-76.0); PLATELET 306 x1000/uL (130-400); RED BLOOD CELL COUNT 3.75 mill/uL (4.2-5.4); RED CELL DISTRIBUTION WIDTH 16.2 % (11.6-14.6)
[2019-07-30] MEDS: SEVELAMER CARBONATE 800 MG TABLET PO SCH ×2 (09:28→14:28)
[2019-07-30 09:56] LABS: PHOSPHORUS 3.4 mg/dL (2.5-4.9)
[2019-07-30] MEDS: FOLIC ACID/VITAMIN B COMP W-C TABLET PO SCH (13:00)
[2019-07-30] MEDS: TIZANIDINE HCL 2MG TABLET PO SCH (14:28)
== END 2019-07-30 18:36 | DRG 113 ==
LOC: ER 18:31 → 7WST 07-27 23:52 → ENRESERV 07-28 00:09
PROVIDERS: ADMIT Internal Medicine; ATTEND Internal Medicine
PROC: 5A1D70Z Performance of Urinary Filtration, Intermittent, Less than 6 Hours Per Day (ICD-10-PCS; principal; 2019-07-28)
PROC: 5A1D70Z Performance of Urinary Filtration, Intermittent, Less than 6 Hours Per Day (ICD-10-PCS; 2019-07-30)
DX: J32.9 Chronic sinusitis, unspecified (principal); I13.2 Hypertensive heart and chronic kidney disease with heart failure and with stage 5 chronic kidney disease, or end stage renal disease; G93.40 Encephalopathy, unspecified; J18.9 Pneumonia, unspecified organism; N18.6 End stage renal disease; D63.8 Anemia in other chronic diseases classified elsewhere; J44.9 Chronic obstructive pulmonary disease, unspecified; F03.90 Unspecified dementia, unspecified severity, without behavioral disturbance, psychotic disturbance, mood disturbance, and anxiety; D49.7 Neoplasm of unspecified behavior of endocrine glands and other parts of nervous system; D72.819 Decreased white blood cell count, unspecified; E02 Subclinical iodine-deficiency hypothyroidism; I50.43 Acute on chronic combined systolic (congestive) and diastolic (congestive) heart failure; F41.9 Anxiety disorder, unspecified; K21.9 Gastro-esophageal reflux disease without esophagitis; Z99.2 Dependence on renal dialysis; Z87.891 Personal history of nicotine dependence
CPT/HCPCS: 36415; 70551; 71045; 80048; 80053; 80061; 83605; 83735; 83880; 84100; 84439; 84443; 84484; 85025; 93005; 96365; 96366; 96368; 96375; 97162; 99284; J0360; J1956; J2020; J2270; J2543; J3370; J7030

== ENCOUNTER 2019-11-05 13:20 | Inpatient (IN) | payer MEDICARE, MEDICAID ==
[~2019-11-05] VITALS: Ht 170.2 cm; Wt 75.3 kg
[2019-11-05] MEDS ORDERED: ASPIRIN 81MG TABLET PO ONE (17:45)
[2019-11-05] MEDS ORDERED: NITROGLYCERIN 0.4MG TABLET SL SL PRN (17:45)
[2019-11-05 17:57] LABS: CHLORIDE 104 mEq/L (98-107)
[2019-11-05 18:01] LABS: BASOPHILS % 0.1 % (0.0-2.0); EOSINOPHILS % 0.1 % (0.0-5.0); HEMATOCRIT. 43.6 % (36.0-48.0); HEMOGLOBIN. 14.9 g/dL (12.0-16.0); MEAN CORPUSCULAR VOLUME 93.6 fL (81.0-99.0); MEAN PLATELET VOLUME 8.5 fl (7.4-10.4); MONOCYTES % 4.9 % (2.0-8.0); NEUTROPHILS % 86.9 % (40.0-76.0); PLATELET 188 x1000/uL (130-400); RED BLOOD CELL COUNT 4.65 mill/uL (4.2-5.4); RED CELL DISTRIBUTION WIDTH 15.3 % (11.6-14.6)
[2019-11-05 18:04] LABS: D-DIMER 0.93 mg/L FEU (<0.50); PARTIAL THROMBOPLASTIN TIME 42.5 sec (23.4-31.0); PROTHROMBIN TIME 10.6 sec (9.6-11.0)
[2019-11-05] MEDS ORDERED: ONDANSETRON HCL 4MG/2ML INJ IV PRN (22:00)
[2019-11-05] MEDS ORDERED: CLONIDINE 0.1MG TABLET PO PRN (22:00)
[2019-11-05] MEDS ORDERED: AZITHROMYCIN 500 MG TABLET PO NR (23:15)
[2019-11-05] MEDS ORDERED: CEFTRIAXONE 1 G PREMIX 50 ML IV NR (23:15)
[2019-11-06] MEDS ORDERED: AZITHROMYCIN 500 MG TABLET PO SCH (09:00)
[2019-11-06] MEDS ORDERED: CEFTRIAXONE 1 G PREMIX 50 ML IV SCH (14:00)
[2019-11-06] MEDS ORDERED: LOSARTAN POTASSIUM 50 MG TABLET PO SCH (18:00)
[2019-11-06] MEDS ORDERED: CARVEDILOL 6.25 MG TABLET PO SCH (21:00)
[2019-11-06] MEDS ORDERED: ASCORBIC ACID 500 MG TABLET PO SCH (21:00)
[2019-11-07 02:31] VITALS: BP 153/70
[2019-11-07 04:00] VITALS: BP 115/82
[2019-11-07 06:01] LABS: PHOSPHORUS 3.9 mg/dL (2.5-4.9)
[2019-11-07 06:11] LABS: BASOPHILS % 0.3 % (0.0-2.0); EOSINOPHILS % 0.2 % (0.0-5.0); HEMATOCRIT. 39.8 % (36.0-48.0); HEMOGLOBIN. 13.4 g/dL (12.0-16.0); LYMPHOCYTES % 11.6 % (20.0-50.0); MEAN CORPUSCULAR HEMOGLOBIN 31.5 pg (28.0-32.0); MEAN CORPUSCULAR VOLUME 93.4 fL (81.0-99.0); MEAN PLATELET VOLUME 8.9 fl (7.4-10.4); MONOCYTES % 5.7 % (2.0-8.0); NEUTROPHILS % 82.2 % (40.0-76.0); PLATELET 225 x1000/uL (130-400); RED BLOOD CELL COUNT 4.26 mill/uL (4.2-5.4); RED CELL DISTRIBUTION WIDTH 15.3 % (11.6-14.6)
[2019-11-07 08:00] VITALS: BP 158/67
[2019-11-07] MEDS: CEFTRIAXONE 1 G PREMIX 50 ML IV SCH (08:00)
[2019-11-07] MEDS ORDERED: CARVEDILOL 6.25 MG TABLET PO SCH (09:00)
[2019-11-07] MEDS: AZITHROMYCIN 250 MG TABLET PO SCH (09:48)
[2019-11-07] MEDS: CARVEDILOL 6.25 MG TABLET PO SCH ×3 (09:48→21:26)
[2019-11-07] MEDS: THIAMINE HCL 100MG TABLET PO SCH ×2 (09:48→16:59)
[2019-11-07] MEDS: ASCORBIC ACID 500 MG TABLET PO SCH ×3 (09:48→21:25)
[2019-11-07] MEDS: LOSARTAN POTASSIUM 50 MG TABLET PO SCH (09:48)
[2019-11-07] MEDS: ZINC SULFATE 220 MG ( 50 ) CAPSULE PO SCH (09:48)
[2019-11-07] MEDS: ENOXAPARIN 30MG/0.3ML SYR SUBCUT SCH (09:49)
[2019-11-07 12:00] VITALS: BP 153/70
[2019-11-07] MEDS: AMLODIPINE 5MG TABLET PO SCH (12:00)
[2019-11-07 16:00] VITALS: BP 136/86
[2019-11-07 20:00] VITALS: BP 114/69
[2019-11-07] MEDS: GUAIFENESIN 600MG ER TABLET PO SCH ×2 (21:00→21:25)
[2019-11-07] MEDS: ACETAMINOPHEN 325MG TABLET PO PRN ×2 (21:26→21:42)
[2019-11-08] VITALS: BP 137/59
[2019-11-08 04:00] VITALS: BP 129/68
[2019-11-08] MEDS: LEVOTHYROXINE SODIUM 25MCG TABLET PO SCH (05:48)
[2019-11-08 06:37] LABS: BASOPHILS % 0.3 % (0.0-2.0); EOSINOPHILS % 0.8 % (0.0-5.0); HEMATOCRIT. 40.6 % (36.0-48.0); HEMOGLOBIN. 13.5 g/dL (12.0-16.0); LYMPHOCYTES % 14.3 % (20.0-50.0); MEAN CORPUSCULAR HEMOGLOBIN 31.4 pg (28.0-32.0); MEAN CORPUSCULAR VOLUME 94.3 fL (81.0-99.0); MEAN PLATELET VOLUME 8.5 fl (7.4-10.4); MONOCYTES % 6.6 % (2.0-8.0); PLATELET 227 x1000/uL (130-400); RED BLOOD CELL COUNT 4.31 mill/uL (4.2-5.4); RED CELL DISTRIBUTION WIDTH 15.4 % (11.6-14.6)
[2019-11-08 07:19] LABS: PHOSPHORUS 3.3 mg/dL (2.5-4.9)
[2019-11-08 08:00] VITALS: BP 146/80
[2019-11-08] MEDS: THIAMINE HCL 100MG TABLET PO SCH ×3 (09:00→17:00)
[2019-11-08] MEDS: GUAIFENESIN 600MG ER TABLET PO SCH ×3 (09:00→21:00)
[2019-11-08] MEDS: ASCORBIC ACID 500 MG TABLET PO SCH ×3 (09:00→21:00)
[2019-11-08] MEDS: AZITHROMYCIN 250 MG TABLET PO SCH ×2 (09:00→09:29)
[2019-11-08] MEDS: ZINC SULFATE 220 MG ( 50 ) CAPSULE PO SCH ×2 (09:00→09:29)
[2019-11-08] MEDS: ENOXAPARIN 30MG/0.3ML SYR SUBCUT SCH ×2 (09:00→09:29)
[2019-11-08] MEDS: CEFTRIAXONE 1 G PREMIX 50 ML IV SCH (09:28)
[2019-11-08] MEDS: AMLODIPINE 5MG TABLET PO SCH (09:30)
[2019-11-08] MEDS: CARVEDILOL 6.25 MG TABLET PO SCH ×2 (09:30→21:15)
[2019-11-08] MEDS: LOSARTAN POTASSIUM 50 MG TABLET PO SCH (09:30)
[2019-11-08 12:00] VITALS: BP 124/64
[2019-11-08 16:00] VITALS: BP 141/68
[2019-11-08 20:00] VITALS: BP 172/85
[2019-11-09 04:00] VITALS: BP 138/72
[2019-11-09] MEDS: LEVOTHYROXINE SODIUM 25MCG TABLET PO SCH (06:23)
[2019-11-09] MEDS: CEFTRIAXONE 1 G PREMIX 50 ML IV SCH (08:58)
[2019-11-09] MEDS: ENOXAPARIN 30MG/0.3ML SYR SUBCUT SCH ×2 (08:58→09:00)
[2019-11-09] MEDS: THIAMINE HCL 100MG TABLET PO SCH ×3 (08:58→17:00)
[2019-11-09] MEDS: AZITHROMYCIN 250 MG TABLET PO SCH (08:59)
[2019-11-09] MEDS: GUAIFENESIN 600MG ER TABLET PO SCH ×3 (08:59→22:04)
[2019-11-09] MEDS: ZINC SULFATE 220 MG ( 50 ) CAPSULE PO SCH ×2 (08:59→09:00)
[2019-11-09] MEDS: AMLODIPINE 5MG TABLET PO SCH ×2 (08:59→21:00)
[2019-11-09] MEDS: ASCORBIC ACID 500 MG TABLET PO SCH ×4 (08:59→22:04)
[2019-11-09] MEDS: LOSARTAN POTASSIUM 50 MG TABLET PO SCH (08:59)
[2019-11-09] MEDS: CARVEDILOL 6.25 MG TABLET PO SCH ×2 (08:59→21:00)
[2019-11-09 12:00] VITALS: BP 120/75
[2019-11-09 16:00] VITALS: BP 148/68
[2019-11-09 20:00] VITALS: BP 107/71
[2019-11-10] VITALS: BP 160/63
[2019-11-10 04:00] VITALS: BP 145/81
[2019-11-10] MEDS: LEVOTHYROXINE SODIUM 25MCG TABLET PO SCH (06:38)
[2019-11-10 08:00] VITALS: BP 175/78
[2019-11-10] MEDS: AMLODIPINE 5MG TABLET PO SCH ×4 (09:00→21:16)
[2019-11-10] MEDS: THIAMINE HCL 100MG TABLET PO SCH ×2 (09:00→16:13)
[2019-11-10] MEDS: CARVEDILOL 6.25 MG TABLET PO SCH ×4 (09:00→21:16)
[2019-11-10] MEDS: ASCORBIC ACID 500 MG TABLET PO SCH ×3 (09:00→21:17)
[2019-11-10] MEDS: ENOXAPARIN 30MG/0.3ML SYR SUBCUT SCH (09:00)
[2019-11-10] MEDS: GUAIFENESIN 600MG ER TABLET PO SCH ×3 (09:00→21:16)
[2019-11-10] MEDS: LOSARTAN POTASSIUM 50 MG TABLET PO SCH ×2 (09:00→10:21)
[2019-11-10] MEDS: ZINC SULFATE 220 MG ( 50 ) CAPSULE PO SCH (09:00)
[2019-11-10] MEDS: AZITHROMYCIN 250 MG TABLET PO SCH (09:06)
[2019-11-10] MEDS: CEFTRIAXONE 1 G PREMIX 50 ML IV SCH (09:06)
[2019-11-10 12:37] VITALS: BP 140/68
[2019-11-10 17:46] VITALS: BP 140/82
[2019-11-10 20:00] VITALS: BP 164/90
[2019-11-11] VITALS: BP 100/75
[2019-11-11] MEDS: LEVOTHYROXINE SODIUM 25MCG TABLET PO SCH (06:28)
[2019-11-11 08:00] VITALS: BP 153/76
[2019-11-11] MEDS: CEFTRIAXONE 1 G PREMIX 50 ML IV SCH (08:13)
[2019-11-11] MEDS: LOSARTAN POTASSIUM 50 MG TABLET PO SCH (08:15)
[2019-11-11] MEDS: ZINC SULFATE 220 MG ( 50 ) CAPSULE PO SCH (08:15)
[2019-11-11] MEDS: THIAMINE HCL 100MG TABLET PO SCH ×3 (08:16→17:00)
[2019-11-11] MEDS: GUAIFENESIN 600MG ER TABLET PO SCH ×4 (08:16→21:10)
[2019-11-11] MEDS: AMLODIPINE 5MG TABLET PO SCH ×4 (08:16→21:10)
[2019-11-11] MEDS: ASCORBIC ACID 500 MG TABLET PO SCH ×4 (08:16→21:10)
[2019-11-11] MEDS: CARVEDILOL 6.25 MG TABLET PO SCH ×4 (08:17→21:10)
[2019-11-11] MEDS: ENOXAPARIN 30MG/0.3ML SYR SUBCUT SCH (08:20)
[2019-11-11] MEDS: ACETAMINOPHEN 325MG TABLET PO PRN (08:23)
[2019-11-11 12:54] VITALS: BP 140/72
[2019-11-11 17:00] VITALS: BP 158/79
[2019-11-11 20:00] VITALS: BP 174/94
[2019-11-12] VITALS: BP 127/74
[2019-11-12 04:00] VITALS: BP 117/84
[2019-11-12] MEDS: LEVOTHYROXINE SODIUM 25MCG TABLET PO SCH (06:40)
[2019-11-12] MEDS: CEFTRIAXONE 1 G PREMIX 50 ML IV SCH ×2 (08:00→09:30)
[2019-11-12] MEDS: ZINC SULFATE 220 MG ( 50 ) CAPSULE PO SCH ×2 (09:00→09:31)
[2019-11-12] MEDS: GUAIFENESIN 600MG ER TABLET PO SCH ×3 (09:00→21:01)
[2019-11-12] MEDS: ENOXAPARIN 30MG/0.3ML SYR SUBCUT SCH ×2 (09:00→09:30)
[2019-11-12] MEDS: LOSARTAN POTASSIUM 50 MG TABLET PO SCH ×2 (09:00→09:30)
[2019-11-12] MEDS: ASCORBIC ACID 500 MG TABLET PO SCH ×3 (09:00→21:01)
[2019-11-12] MEDS: AMLODIPINE 5MG TABLET PO SCH ×3 (09:00→21:04)
[2019-11-12] MEDS: CARVEDILOL 6.25 MG TABLET PO SCH ×3 (09:00→21:04)
[2019-11-12] MEDS: THIAMINE HCL 100MG TABLET PO SCH ×3 (09:00→16:55)
[2019-11-12 09:27] VITALS: BP 159/77
[2019-11-12 11:55] VITALS: BP 159/72
[2019-11-12 12:59] LABS: BASOPHILS % 2.2 % (0.0-2.0); EOSINOPHILS % 1.9 % (0.0-5.0); HEMATOCRIT. 48.1 % (36.0-48.0); HEMOGLOBIN. 16.1 g/dL (12.0-16.0); LYMPHOCYTES % 17.2 % (20.0-50.0); MEAN CORPUSCULAR HEMOGLOBIN 31.4 pg (28.0-32.0); MEAN CORPUSCULAR VOLUME 93.7 fL (81.0-99.0); MEAN PLATELET VOLUME 8.2 fl (7.4-10.4); MONOCYTES % 11.3 % (2.0-8.0); NEUTROPHILS % 67.4 % (40.0-76.0); PLATELET 239 x1000/uL (130-400); RED BLOOD CELL COUNT 5.13 mill/uL (4.2-5.4); RED CELL DISTRIBUTION WIDTH 15.2 % (11.6-14.6)
[2019-11-12 13:11] LABS: PHOSPHORUS 4.3 mg/dL (2.5-4.9)
[2019-11-12 17:29] VITALS: BP 175/88
[2019-11-12 20:00] VITALS: BP 179/85
[2019-11-13] VITALS: BP 135/73
[2019-11-13] MEDS: LEVOTHYROXINE SODIUM 25MCG TABLET PO SCH (05:42)
[2019-11-13 08:00] VITALS: BP 170/84
[2019-11-13] MEDS: ENOXAPARIN 30MG/0.3ML SYR SUBCUT SCH (09:00)
[2019-11-13] MEDS: ZINC SULFATE 220 MG ( 50 ) CAPSULE PO SCH ×2 (09:00→09:50)
[2019-11-13] MEDS: GUAIFENESIN 600MG ER TABLET PO SCH ×2 (09:00→20:36)
[2019-11-13] MEDS: THIAMINE HCL 100MG TABLET PO SCH (09:49)
[2019-11-13] MEDS: ASCORBIC ACID 500 MG TABLET PO SCH (09:49)
[2019-11-13] MEDS: LOSARTAN POTASSIUM 100 MG TABLET PO SCH (09:50)
[2019-11-13] MEDS: AMLODIPINE 5MG TABLET PO SCH ×2 (09:50→20:36)
[2019-11-13] MEDS: ACETAMINOPHEN 325MG TABLET PO PRN (09:51)
[2019-11-13] MEDS: CARVEDILOL 6.25 MG TABLET PO SCH ×2 (09:51→20:37)
[2019-11-13 16:00] VITALS: BP 123/60
[2019-11-13 20:00] VITALS: BP 144/70
[2019-11-14] VITALS: BP 146/74
[2019-11-14 04:00] VITALS: BP 104/46
[2019-11-14] MEDS: LEVOTHYROXINE SODIUM 25MCG TABLET PO SCH (06:11)
[2019-11-14 07:43] LABS: PHOSPHORUS 4.6 mg/dL (2.5-4.9)
[2019-11-14 08:00] VITALS: BP 131/57
[2019-11-14] MEDS: GUAIFENESIN 600MG ER TABLET PO SCH ×2 (08:48→21:44)
[2019-11-14] MEDS: AMLODIPINE 5MG TABLET PO SCH ×2 (08:48→21:44)
[2019-11-14] MEDS: CARVEDILOL 6.25 MG TABLET PO SCH ×2 (08:48→21:44)
[2019-11-14] MEDS: LOSARTAN POTASSIUM 100 MG TABLET PO SCH (08:48)
[2019-11-14] MEDS: ZINC SULFATE 220 MG ( 50 ) CAPSULE PO SCH (08:48)
[2019-11-14] MEDS: ENOXAPARIN 30MG/0.3ML SYR SUBCUT SCH (08:49)
[2019-11-14] MEDS: ACETAMINOPHEN 325MG TABLET PO PRN (10:23)
[2019-11-14 12:00] VITALS: BP 112/57
[2019-11-14 16:00] VITALS: BP 122/68
[2019-11-14 20:00] VITALS: BP 130/82
[2019-11-14] MEDS ORDERED: SODIUM POLYSTYRENE SULFONATE 15 G/60 ML BOT PO NR (21:00)
[2019-11-15] VITALS (7 sets, daily range): BP systolic 120–147; BP diastolic 54–69
[2019-11-15] MEDS: LEVOTHYROXINE SODIUM 25MCG TABLET PO SCH (06:28)
[2019-11-15 06:38] LABS: HEMATOCRIT. 41.4 % (36.0-48.0); MEAN CORPUSCULAR HEMOGLOBIN 31.5 pg (28.0-32.0); MEAN CORPUSCULAR VOLUME 93.4 fL (81.0-99.0); MEAN PLATELET VOLUME 8.6 fl (7.4-10.4); PLATELET 219 x1000/uL (130-400); RED BLOOD CELL COUNT 4.43 mill/uL (4.2-5.4); RED CELL DISTRIBUTION WIDTH 15.2 % (11.6-14.6)
[2019-11-15] MEDS: GUAIFENESIN 600MG ER TABLET PO SCH ×3 (09:00→20:51)
[2019-11-15] MEDS: ENOXAPARIN 30MG/0.3ML SYR SUBCUT SCH (09:40)
[2019-11-15] MEDS: CARVEDILOL 6.25 MG TABLET PO SCH ×2 (09:41→20:50)
[2019-11-15] MEDS: AMLODIPINE 5MG TABLET PO SCH ×2 (09:41→20:51)
[2019-11-15] MEDS: ZINC SULFATE 220 MG ( 50 ) CAPSULE PO SCH (09:41)
[2019-11-15] MEDS: LOSARTAN POTASSIUM 100 MG TABLET PO SCH (09:41)
[2019-11-15] MEDS: SODIUM CHLORIDE 45ML SPRAY NS SCH ×3 (11:46→18:00)
[2019-11-15 12:47] LABS: PLATELET ESTIMATE NORMAL
[2019-11-16] VITALS: BP 138/98
[2019-11-16] MEDS: SODIUM CHLORIDE 45ML SPRAY NS SCH ×5 (00:48→23:52)
[2019-11-16 04:00] VITALS: BP 132/72
[2019-11-16] MEDS: LEVOTHYROXINE SODIUM 25MCG TABLET PO SCH (06:34)
[2019-11-16 08:00] VITALS: BP 118/77
[2019-11-16] MEDS: AMLODIPINE 5MG TABLET PO SCH ×3 (09:00→21:00)
[2019-11-16] MEDS: LOSARTAN POTASSIUM 100 MG TABLET PO SCH ×2 (09:00→09:23)
[2019-11-16] MEDS: CARVEDILOL 6.25 MG TABLET PO SCH ×3 (09:00→20:59)
[2019-11-16] MEDS: ZINC SULFATE 220 MG ( 50 ) CAPSULE PO SCH ×2 (09:00→09:23)
[2019-11-16] MEDS: ENOXAPARIN 30MG/0.3ML SYR SUBCUT SCH (09:00)
[2019-11-16] MEDS: GUAIFENESIN 600MG ER TABLET PO SCH ×3 (09:00→20:59)
[2019-11-16 12:24] VITALS: BP 115/58
[2019-11-16 16:00] VITALS: BP 133/70
[2019-11-16 20:00] VITALS: BP 129/64
[2019-11-17] VITALS: BP 133/80
[2019-11-17 04:00] VITALS: BP 152/90
[2019-11-17] MEDS: SODIUM CHLORIDE 45ML SPRAY NS SCH ×3 (05:56→17:41)
[2019-11-17] MEDS: LEVOTHYROXINE SODIUM 25MCG TABLET PO SCH (05:57)
[2019-11-17 08:00] VITALS: BP 114/56
[2019-11-17] MEDS: CARVEDILOL 6.25 MG TABLET PO SCH ×2 (09:00→21:34)
[2019-11-17] MEDS: GUAIFENESIN 600MG ER TABLET PO SCH ×2 (09:00→21:33)
[2019-11-17] MEDS: ENOXAPARIN 30MG/0.3ML SYR SUBCUT SCH (09:00)
[2019-11-17] MEDS: LOSARTAN POTASSIUM 100 MG TABLET PO SCH (09:00)
[2019-11-17] MEDS: AMLODIPINE 5MG TABLET PO SCH ×2 (09:00→21:34)
[2019-11-17] MEDS: ZINC SULFATE 220 MG ( 50 ) CAPSULE PO SCH (09:00)
[2019-11-17 12:00] VITALS: BP 126/63
[2019-11-17 16:00] VITALS: BP 144/66
[2019-11-17 20:00] VITALS: BP 110/65
[2019-11-18] VITALS: BP 96/52
[2019-11-18 04:00] VITALS: BP 159/70
[2019-11-18] MEDS: SODIUM CHLORIDE 45ML SPRAY NS SCH ×5 (06:00→23:46)
[2019-11-18] MEDS: LEVOTHYROXINE SODIUM 25MCG TABLET PO SCH (06:40)
[2019-11-18 08:00] VITALS: BP 144/87
[2019-11-18] MEDS: ENOXAPARIN 30MG/0.3ML SYR SUBCUT SCH (09:00)
[2019-11-18] MEDS: CARVEDILOL 6.25 MG TABLET PO SCH ×2 (09:36→21:23)
[2019-11-18] MEDS: AMLODIPINE 5MG TABLET PO SCH ×2 (09:36→21:23)
[2019-11-18] MEDS: LOSARTAN POTASSIUM 100 MG TABLET PO SCH (09:36)
[2019-11-18] MEDS: ZINC SULFATE 220 MG ( 50 ) CAPSULE PO SCH (09:36)
[2019-11-18] MEDS: GUAIFENESIN 600MG ER TABLET PO SCH ×2 (09:36→21:22)
[2019-11-18 12:00] VITALS: BP 136/86
[2019-11-18 16:00] VITALS: BP 148/87
[2019-11-18 20:00] VITALS: BP 155/72
[2019-11-19 01:00] VITALS: BP 157/62
[2019-11-19 04:00] VITALS: BP 135/68
[2019-11-19] MEDS: SODIUM CHLORIDE 45ML SPRAY NS SCH ×4 (05:32→23:37)
[2019-11-19] MEDS: LEVOTHYROXINE SODIUM 25MCG TABLET PO SCH (06:08)
[2019-11-19 08:00] VITALS: BP 130/54
[2019-11-19] MEDS: LOSARTAN POTASSIUM 100 MG TABLET PO SCH (09:02)
[2019-11-19] MEDS: ENOXAPARIN 30MG/0.3ML SYR SUBCUT SCH (09:02)
[2019-11-19] MEDS: GUAIFENESIN 600MG ER TABLET PO SCH ×3 (09:02→20:56)
[2019-11-19] MEDS: AMLODIPINE 5MG TABLET PO SCH ×2 (09:03→20:58)
[2019-11-19] MEDS: ZINC SULFATE 220 MG ( 50 ) CAPSULE PO SCH (09:03)
[2019-11-19] MEDS: CARVEDILOL 6.25 MG TABLET PO SCH ×2 (09:03→20:56)
[2019-11-19 12:00] VITALS: BP 107/56
[2019-11-19 16:00] VITALS: BP 118/53
[2019-11-19 20:00] VITALS: BP 160/86
[2019-11-20 04:00] VITALS: BP 146/71
[2019-11-20] MEDS: SODIUM CHLORIDE 45ML SPRAY NS SCH ×3 (05:36→17:10)
[2019-11-20] MEDS: LEVOTHYROXINE SODIUM 25MCG TABLET PO SCH (06:18)
[2019-11-20 08:00] VITALS: BP 138/71
[2019-11-20] MEDS: AMLODIPINE 5MG TABLET PO SCH ×2 (09:00→21:39)
[2019-11-20] MEDS: CARVEDILOL 6.25 MG TABLET PO SCH ×2 (09:00→21:39)
[2019-11-20] MEDS: LOSARTAN POTASSIUM 100 MG TABLET PO SCH (09:00)
[2019-11-20] MEDS: GUAIFENESIN 600MG ER TABLET PO SCH ×2 (10:00→21:39)
[2019-11-20] MEDS: ZINC SULFATE 220 MG ( 50 ) CAPSULE PO SCH (10:01)
[2019-11-20] MEDS: ENOXAPARIN 30MG/0.3ML SYR SUBCUT SCH ×2 (10:01→10:25)
[2019-11-20 20:00] VITALS: BP 142/67
[2019-11-21] VITALS: BP 145/70
[2019-11-21] MEDS: SODIUM CHLORIDE 45ML SPRAY NS SCH ×5 (00:09→18:00)
[2019-11-21 04:00] VITALS: BP 132/66
[2019-11-21] MEDS: LEVOTHYROXINE SODIUM 25MCG TABLET PO SCH (05:50)
[2019-11-21 08:00] VITALS: BP 158/81
[2019-11-21] MEDS: LOSARTAN POTASSIUM 100 MG TABLET PO SCH (09:00)
[2019-11-21] MEDS: AMLODIPINE 5MG TABLET PO SCH ×2 (10:50→21:00)
[2019-11-21] MEDS: GUAIFENESIN 600MG ER TABLET PO SCH ×2 (10:50→21:00)
[2019-11-21] MEDS: ZINC SULFATE 220 MG ( 50 ) CAPSULE PO SCH (10:51)
[2019-11-21] MEDS: CARVEDILOL 6.25 MG TABLET PO SCH ×2 (10:51→21:00)
[2019-11-21 12:00] VITALS: BP 136/56
[2019-11-21 16:00] VITALS: BP 133/60
[2019-11-21 20:00] VITALS: BP 154/64
[2019-11-22] VITALS: BP 161/71
[2019-11-22 04:00] VITALS: BP 143/68
[2019-11-22] MEDS: SODIUM CHLORIDE 45ML SPRAY NS SCH ×4 (06:00→18:46)
[2019-11-22] MEDS: LEVOTHYROXINE SODIUM 25MCG TABLET PO SCH (06:00)
[2019-11-22 08:00] VITALS: BP 137/54
[2019-11-22 08:00] LABS: HEMATOCRIT. 40.6 % (36.0-48.0); HEMOGLOBIN. 13.4 g/dL (12.0-16.0); MEAN CORPUSCULAR HEMOGLOBIN 30.8 pg (28.0-32.0); MEAN PLATELET VOLUME 8.7 fl (7.4-10.4); PLATELET 190 x1000/uL (130-400); RED BLOOD CELL COUNT 4.36 mill/uL (4.2-5.4); RED CELL DISTRIBUTION WIDTH 15.1 % (11.6-14.6)
[2019-11-22 08:11] LABS: PHOSPHORUS 7.7 mg/dL (2.5-4.9)
[2019-11-22] MEDS: ENOXAPARIN 30MG/0.3ML SYR SUBCUT SCH (09:53)
[2019-11-22] MEDS: ZINC SULFATE 220 MG ( 50 ) CAPSULE PO SCH (09:54)
[2019-11-22] MEDS: CARVEDILOL 6.25 MG TABLET PO SCH ×2 (09:54→21:47)
[2019-11-22] MEDS: GUAIFENESIN 600MG ER TABLET PO SCH ×2 (09:54→21:46)
[2019-11-22] MEDS: AMLODIPINE 5MG TABLET PO SCH ×2 (09:54→21:46)
[2019-11-22] MEDS: LOSARTAN POTASSIUM 100 MG TABLET PO SCH (09:54)
[2019-11-22 12:00] VITALS: BP 114/66
[2019-11-22 13:35] LABS: PLATELET ESTIMATE NORMAL
[2019-11-22 16:00] VITALS: BP 126/60
[2019-11-22] MEDS: ACETAMINOPHEN 325MG TABLET PO PRN (18:15)
[2019-11-22 20:00] VITALS: BP 149/87
[2019-11-23] VITALS: BP 140/74
[2019-11-23] MEDS: SODIUM CHLORIDE 45ML SPRAY NS SCH ×3 (00:50→12:00)
[2019-11-23 04:00] VITALS: BP 134/65
[2019-11-23] MEDS: LEVOTHYROXINE SODIUM 25MCG TABLET PO SCH (06:38)
[2019-11-23 08:00] VITALS: BP 130/62
[2019-11-23] MEDS: LOSARTAN POTASSIUM 100 MG TABLET PO SCH (09:00)
[2019-11-23] MEDS: AMLODIPINE 5MG TABLET PO SCH (09:00)
[2019-11-23] MEDS: CARVEDILOL 6.25 MG TABLET PO SCH (09:00)
[2019-11-23] MEDS: ENOXAPARIN 30MG/0.3ML SYR SUBCUT SCH (09:47)
[2019-11-23] MEDS: ZINC SULFATE 220 MG ( 50 ) CAPSULE PO SCH (09:48)
[2019-11-23] MEDS: GUAIFENESIN 600MG ER TABLET PO SCH (09:48)
[2019-11-23 12:00] VITALS: BP 120/61
== END 2019-11-23 16:30 | DRG 720 ==
LOC: ER 13:20 → 7EST 11-06 19:27 → CANRESERV 11-06 20:32 → ENRESERV 11-06 20:32 → EDBEDREQ 11-07 00:15 → ENRESERV 11-07 00:17
PROVIDERS: ADMIT Internal Medicine; ATTEND Internal Medicine
PROC: 02H633Z Insertion of Infusion Device into Right Atrium, Percutaneous Approach (ICD-10-PCS; principal; 2019-11-06)
PROC: 5A1D70Z Performance of Urinary Filtration, Intermittent, Less than 6 Hours Per Day (ICD-10-PCS; 2019-11-06)
PROC: 5A1D70Z Performance of Urinary Filtration, Intermittent, Less than 6 Hours Per Day (ICD-10-PCS; 2019-11-08)
PROC: 5A1D70Z Performance of Urinary Filtration, Intermittent, Less than 6 Hours Per Day (ICD-10-PCS; 2019-11-10)
PROC: 5A1D70Z Performance of Urinary Filtration, Intermittent, Less than 6 Hours Per Day (ICD-10-PCS; 2019-11-11)
PROC: 5A1D70Z Performance of Urinary Filtration, Intermittent, Less than 6 Hours Per Day (ICD-10-PCS; 2019-11-15)
PROC: 5A1D70Z Performance of Urinary Filtration, Intermittent, Less than 6 Hours Per Day (ICD-10-PCS; 2019-11-20)
PROC: 5A1D70Z Performance of Urinary Filtration, Intermittent, Less than 6 Hours Per Day (ICD-10-PCS; 2019-11-22)
DX: A41.89 Other specified sepsis (principal); U07.1 COVID-19; J96.00 Acute respiratory failure, unspecified whether with hypoxia or hypercapnia; I13.2 Hypertensive heart and chronic kidney disease with heart failure and with stage 5 chronic kidney disease, or end stage renal disease; E44.0 Moderate protein-calorie malnutrition; I42.9 Cardiomyopathy, unspecified; N18.6 End stage renal disease; E87.2 Acidosis; J44.0 Chronic obstructive pulmonary disease with (acute) lower respiratory infection; B34.9 Viral infection, unspecified; I50.23 Acute on chronic systolic (congestive) heart failure; E03.9 Hypothyroidism, unspecified; F03.90 Unspecified dementia, unspecified severity, without behavioral disturbance, psychotic disturbance, mood disturbance, and anxiety; N25.81 Secondary hyperparathyroidism of renal origin; Z66 Do not resuscitate; J12.89 Other viral pneumonia; J20.8 Acute bronchitis due to other specified organisms; J44.9 Chronic obstructive pulmonary disease, unspecified; K21.9 Gastro-esophageal reflux disease without esophagitis; Z82.49 Family history of ischemic heart disease and other diseases of the circulatory system; Z99.2 Dependence on renal dialysis; Z93.3 Colostomy status; Z68.26 Body mass index [BMI] 26.0-26.9, adult; Z88.1 Allergy status to other antibiotic agents; Z79.899 Other long term (current) drug therapy
CPT/HCPCS: 36415; 71045; 78582; 80048; 80053; 82962; 83735; 83880; 84100; 84443; 84484; 85025; 85379; 87635; 93005; 93970; 96365; 99285; A9558; J0696; J1650

== ENCOUNTER 2020-04-09 16:37 | Emergency (ER) | payer MEDICARE, MEDICAID ==
[~2020-04-09] VITALS: Ht 160 cm; Wt 101.0 kg
[2020-04-09] MEDS ORDERED: ONDANSETRON HCL 4MG/2ML INJ IV STA (17:44)
[2020-04-09] MEDS ORDERED: SODIUM CHLORIDE 0.9% 1,000 ML IV ONE (17:44)
[2020-04-09] MEDS ORDERED: MORPHINE SULFATE 4 MG/ML CPJ (NOT FOR IM USE) IV STA (17:44)
[2020-04-09 18:04] LABS: EOSINOPHILS % 4.1 % (0.0-5.0); HEMATOCRIT. 33.6 % (36.0-48.0); HEMOGLOBIN. 11.2 g/dL (12.0-16.0); MEAN CORPUSCULAR HEMOGLOBIN 30.1 pg (28.0-32.0); MEAN CORPUSCULAR VOLUME 90.6 fL (81.0-99.0); MEAN PLATELET VOLUME 8.7 fl (7.4-10.4); MONOCYTES % 9.9 % (2.0-8.0); PLATELET 155 x1000/uL (130-400); RED BLOOD CELL COUNT 3.71 mill/uL (4.2-5.4); RED CELL DISTRIBUTION WIDTH 16.8 % (11.6-14.6)
[2020-04-09 18:11] LABS: CHLORIDE 105 mEq/L (98-107)
[2020-04-09] MEDS ORDERED: AMLODIPINE 10MG TABLET PO ONE (20:30)
[2020-04-09 21:32] VITALS: BP 181/84
== END 2020-04-09 22:28 ==
LOC: ER 16:37
DX: M25.511 Pain in right shoulder (principal); I13.2 Hypertensive heart and chronic kidney disease with heart failure and with stage 5 chronic kidney disease, or end stage renal disease; N18.6 End stage renal disease; I50.9 Heart failure, unspecified; K21.9 Gastro-esophageal reflux disease without esophagitis; J44.9 Chronic obstructive pulmonary disease, unspecified; F03.90 Unspecified dementia, unspecified severity, without behavioral disturbance, psychotic disturbance, mood disturbance, and anxiety; Z99.2 Dependence on renal dialysis; Z87.891 Personal history of nicotine dependence
CPT/HCPCS: 36415; 71045; 73030; 80053; 85025; 93005; 96361; 96374; 96375; 99285; J2270; J2405; J7030

== ENCOUNTER 2020-09-19 12:46 | Inpatient (IN) | payer MEDICARE, MEDICAID ==
[~2020-09-19] VITALS: Ht 165.1 cm; Wt 78.5 kg
[~2020-09-19 12:46] MED LIST changes: +TIZA-191 PO; -TIZA2TAB5 PO
[2020-09-19 13:54] LABS: CHLORIDE 104 mEq/L (98-107)
[2020-09-19] MEDS ORDERED: ACETAMINOPHEN 500MG TABLET PO ONE (15:00)
[2020-09-19 15:30] LABS: HEMATOCRIT. 36.1 % (36.0-48.0); HEMOGLOBIN. 11.6 g/dL (12.0-16.0); MEAN CORPUSCULAR HEMOGLOBIN 31.3 pg (28.0-32.0); MEAN CORPUSCULAR VOLUME 97.6 fL (81.0-99.0); MEAN PLATELET VOLUME 8.4 fl (7.4-10.4); PLATELET 182 x1000/uL (130-400); RED BLOOD CELL COUNT 3.69 mill/uL (4.2-5.4); RED CELL DISTRIBUTION WIDTH 20.4 % (11.6-14.6)
[2020-09-19 15:40] LABS: INR 1.2; PARTIAL THROMBOPLASTIN TIME 56.3 sec (23.4-31.0); PROTHROMBIN TIME 12.5 sec (9.6-11.0)
[2020-09-19] MEDS ORDERED: SODIUM CHLORIDE 0.9% 1000ML BAG (SEPSIS BOLUS) IV NR (16:30)
[2020-09-19] MEDS ORDERED: CEFTRIAXONE 1 G PREMIX 50 ML IV NR (16:30)
[2020-09-19 16:41] LABS: PLATELET ESTIMATE NORMAL
[2020-09-19] MEDS ORDERED: AZITHROMYCIN 500 MG in DEXT 5% WATER 250 ML IV NR (17:00)
[2020-09-19] MEDS ORDERED: HYDROCODONE/ACETAMINOPHEN 5/325MG TABLET PO PRN (21:45)
[2020-09-19] MEDS ORDERED: GUAIFENESIN 200MG/10ML SUGAR FREE UDC PO PRN (21:45)
[2020-09-19] MEDS ORDERED: ONDANSETRON HCL 4MG/2ML INJ IV PRN (21:45)
[2020-09-19] MEDS ORDERED: LORAZEPAM 2MG/ML CPJ IV PRN (21:45)
[2020-09-19] MEDS ORDERED: DOCUSATE SODIUM 100MG CAPSULE PO PRN (21:45)
[2020-09-19] MEDS ORDERED: MAGNESIUM/ALUMINUM HYDROXIDE/SIMETHICONE 30ML UDC PO PRN (21:45)
[2020-09-19] MEDS ORDERED: MORPHINE SULFATE 2 MG/ML CPJ (NOT FOR IM USE) IV PRN (21:45)
[2020-09-19] MEDS ORDERED: ALBUTEROL 6.7GM HFA INHALER ORI PRN (21:45)
[2020-09-19 23:28] VITALS: BP 132/59
[2020-09-20] VITALS: BP 132/59
[2020-09-20] MEDS: SODIUM CHLORIDE 0.9% INJ 3ML FLUSH IVF SCH ×4 (00:21→20:05)
[2020-09-20 04:00] VITALS: BP 143/62
[2020-09-20] MEDS: ACETAMINOPHEN 325MG TABLET PO PRN ×2 (05:51→14:38)
[2020-09-20 07:06] LABS: HEMATOCRIT. 33.3 % (36.0-48.0); HEMOGLOBIN. 10.7 g/dL (12.0-16.0); MEAN CORPUSCULAR HEMOGLOBIN 31.6 pg (28.0-32.0); MEAN CORPUSCULAR VOLUME 98.9 fL (81.0-99.0); MEAN PLATELET VOLUME 8.5 fl (7.4-10.4); PLATELET 161 x1000/uL (130-400); RED BLOOD CELL COUNT 3.37 mill/uL (4.2-5.4); RED CELL DISTRIBUTION WIDTH 20.5 % (11.6-14.6)
[2020-09-20 07:14] LABS: CHLORIDE 107 mEq/L (98-107)
[2020-09-20 08:00] VITALS: BP 115/54
[2020-09-20] MEDS: ENOXAPARIN 30MG/0.3ML SYR SUBCUT SCH (08:43)
[2020-09-20 12:00] VITALS: BP 129/56
[2020-09-20 16:00] VITALS: BP 121/51
[2020-09-20] MEDS ORDERED: CEFTRIAXONE 1,000 MG in DEXTROSE 5% WATER 50 ML IV SCH (16:00)
[2020-09-20] MEDS ORDERED: AZITHROMYCIN 500 MG in DEXT 5% WATER 250 ML IV SCH (17:00)
[2020-09-20] MEDS ORDERED: CEFTRIAXONE 1 G PREMIX 50 ML IV SCH (17:00)
[2020-09-20 20:00] VITALS: BP 122/53
[2020-09-21] VITALS: BP 131/52
[2020-09-21 04:00] VITALS: BP 134/78
[2020-09-21 04:08] LABS: PLATELET ESTIMATE NORMAL
[2020-09-21] MEDS: SODIUM CHLORIDE 0.9% INJ 3ML FLUSH IVF SCH ×3 (05:00→20:28)
[2020-09-21 06:32] LABS: BASOPHILS % 0.7 % (0.0-2.0); EOSINOPHILS % 5.5 % (0.0-5.0); HEMATOCRIT. 30.9 % (36.0-48.0); LYMPHOCYTES % 8.3 % (20.0-50.0); MEAN CORPUSCULAR HEMOGLOBIN 31.4 pg (28.0-32.0); MEAN CORPUSCULAR VOLUME 97.2 fL (81.0-99.0); MEAN PLATELET VOLUME 8.8 fl (7.4-10.4); MONOCYTES % 9.3 % (2.0-8.0); NEUTROPHILS % 76.2 % (40.0-76.0); PLATELET 156 x1000/uL (130-400); RED BLOOD CELL COUNT 3.17 mill/uL (4.2-5.4); RED CELL DISTRIBUTION WIDTH 20.1 % (11.6-14.6)
[2020-09-21 07:25] LABS: CHLORIDE 108 mEq/L (98-107)
[2020-09-21 07:50] LABS: PHOSPHORUS 4.5 mg/dL (2.5-4.9)
[2020-09-21 08:00] VITALS: BP 130/65
[2020-09-21] MEDS: ENOXAPARIN 30MG/0.3ML SYR SUBCUT SCH ×2 (08:25→08:31)
[2020-09-21] MEDS: ENOXAPARIN 60MG/0.6ML SYR SUBCUT SCH (10:00)
[2020-09-21 12:00] VITALS: BP 134/52
[2020-09-21 16:00] VITALS: BP 158/83
[2020-09-21] MEDS ORDERED: DAPTOMYCIN XX SCH (16:30)
[2020-09-21] MEDS ORDERED: AZITHROMYCIN 500 MG TABLET PO SCH (17:00)
[2020-09-21] MEDS: ACETAMINOPHEN 325MG TABLET PO PRN (18:37)
[2020-09-21 20:00] VITALS: BP 129/75
[2020-09-21] MEDS: DAPTOMYCIN 375 MG in SODIUM CHLORIDE 0.9% 50 ML IV SCH (20:28)
[2020-09-22] VITALS: BP 163/71
[2020-09-22 04:00] VITALS: BP 150/71
[2020-09-22] MEDS: SODIUM CHLORIDE 0.9% INJ 3ML FLUSH IVF SCH ×3 (05:52→22:00)
[2020-09-22] MEDS: ACETAMINOPHEN 325MG TABLET PO PRN ×2 (06:58→17:11)
[2020-09-22 08:00] VITALS: BP 175/75
[2020-09-22 08:35] LABS: BASOPHILS % 0.7 % (0.0-2.0); EOSINOPHILS % 6.7 % (0.0-5.0); HEMATOCRIT. 32.3 % (36.0-48.0); HEMOGLOBIN. 10.3 g/dL (12.0-16.0); LYMPHOCYTES % 13.8 % (20.0-50.0); MEAN CORPUSCULAR HEMOGLOBIN 30.7 pg (28.0-32.0); MEAN CORPUSCULAR VOLUME 96.3 fL (81.0-99.0); MONOCYTES % 9.5 % (2.0-8.0); NEUTROPHILS % 69.3 % (40.0-76.0); PLATELET 182 x1000/uL (130-400); RED BLOOD CELL COUNT 3.35 mill/uL (4.2-5.4); RED CELL DISTRIBUTION WIDTH 20.1 % (11.6-14.6)
[2020-09-22] MEDS: ENOXAPARIN 60MG/0.6ML SYR SUBCUT SCH (09:00)
[2020-09-22 09:12] LABS: CHLORIDE 105 mEq/L (98-107)
[2020-09-22 09:26] LABS: CREATINE KINASE 34 IU/L (26-192); PHOSPHORUS 4.2 mg/dL (2.5-4.9)
[2020-09-22] MEDS ORDERED: IOHEXOL-300 50 ML BOTTLE IV ONE (11:27)
[2020-09-22 12:15] VITALS: BP 180/89
[2020-09-22 16:00] VITALS: BP 165/85
[2020-09-22] MEDS: CLONIDINE 0.1MG TABLET PO PRN (18:29)
[2020-09-22 20:00] VITALS: BP 141/63
[2020-09-22] MEDS: DAPTOMYCIN 375 MG in SODIUM CHLORIDE 0.9% 50 ML IV SCH (21:00)
[2020-09-23] VITALS: BP 157/75
[2020-09-23 04:00] VITALS: BP 167/77
[2020-09-23] MEDS: SODIUM CHLORIDE 0.9% INJ 3ML FLUSH IVF SCH ×3 (05:11→22:25)
[2020-09-23 08:00] VITALS: BP 162/71
[2020-09-23] MEDS: ACETAMINOPHEN 325MG TABLET PO PRN ×2 (09:09→15:29)
[2020-09-23] MEDS: ENOXAPARIN 60MG/0.6ML SYR SUBCUT SCH (09:16)
[2020-09-23] MEDS: CLONIDINE 0.1MG TABLET PO PRN ×2 (09:16→17:22)
[2020-09-23 12:00] VITALS: BP 140/64
[2020-09-23 15:54] VITALS: BP 160/80
[2020-09-23 20:00] VITALS: BP 166/70
[2020-09-23] MEDS: DAPTOMYCIN 400 MG in SODIUM CHLORIDE 0.9% 50 ML IV SCH (20:52)
[2020-09-24] VITALS: BP 165/75
[2020-09-24 04:00] VITALS: BP 176/75
[2020-09-24] MEDS: SODIUM CHLORIDE 0.9% INJ 3ML FLUSH IVF SCH ×3 (05:28→21:24)
[2020-09-24 07:39] LABS: BASOPHILS % 1.1 % (0.0-2.0); EOSINOPHILS % 6.9 % (0.0-5.0); HEMATOCRIT. 29.6 % (36.0-48.0); HEMOGLOBIN. 9.7 g/dL (12.0-16.0); LYMPHOCYTES % 20.6 % (20.0-50.0); MEAN CORPUSCULAR HEMOGLOBIN 31.2 pg (28.0-32.0); MEAN CORPUSCULAR VOLUME 95.4 fL (81.0-99.0); MEAN PLATELET VOLUME 8.4 fl (7.4-10.4); MONOCYTES % 11.2 % (2.0-8.0); NEUTROPHILS % 60.2 % (40.0-76.0); PLATELET 174 x1000/uL (130-400); RED CELL DISTRIBUTION WIDTH 19.6 % (11.6-14.6)
[2020-09-24 08:00] VITALS: BP 172/65
[2020-09-24 08:13] LABS: PHOSPHORUS 3.9 mg/dL (2.5-4.9)
[2020-09-24] MEDS: ENOXAPARIN 60MG/0.6ML SYR SUBCUT SCH ×2 (08:53→09:00)
[2020-09-24] MEDS: ACETAMINOPHEN 325MG TABLET PO PRN ×2 (08:54→15:25)
[2020-09-24 12:00] VITALS: BP 125/72
[2020-09-24 16:00] VITALS: BP 177/78
[2020-09-24] MEDS: DIPHENHYDRAMINE 50MG/ML VIAL IV PRN (20:06)
[2020-09-24 20:31] VITALS: BP 183/77
[2020-09-25 00:56] VITALS: BP 195/86
[2020-09-25] MEDS: CLONIDINE 0.1MG TABLET PO PRN ×2 (01:16→08:45)
[2020-09-25] MEDS: ACETAMINOPHEN 325MG TABLET PO PRN ×4 (01:16→20:54)
[2020-09-25 04:00] VITALS: BP 159/67
[2020-09-25 06:22] LABS: BASOPHILS % 1.1 % (0.0-2.0); EOSINOPHILS % 8.1 % (0.0-5.0); HEMATOCRIT. 27.5 % (36.0-48.0); LYMPHOCYTES % 24.6 % (20.0-50.0); MEAN CORPUSCULAR VOLUME 94.7 fL (81.0-99.0); MEAN PLATELET VOLUME 8.6 fl (7.4-10.4); MONOCYTES % 13.1 % (2.0-8.0); NEUTROPHILS % 53.1 % (40.0-76.0); PLATELET 187 x1000/uL (130-400); RED BLOOD CELL COUNT 2.91 mill/uL (4.2-5.4); RED CELL DISTRIBUTION WIDTH 19.5 % (11.6-14.6)
[2020-09-25] MEDS: SODIUM CHLORIDE 0.9% INJ 3ML FLUSH IVF SCH ×3 (06:22→22:00)
[2020-09-25 08:00] VITALS: BP 167/69
[2020-09-25] MEDS: ENOXAPARIN 60MG/0.6ML SYR SUBCUT SCH ×2 (08:40→09:00)
[2020-09-25 12:00] VITALS: BP 174/78
[2020-09-25 16:00] VITALS: BP 118/70
[2020-09-25] MEDS: ENOXAPARIN 80MG/0.8ML SYR SUBCUT SCH (18:00)
[2020-09-25 20:00] VITALS: BP 186/74
[2020-09-25] MEDS: DAPTOMYCIN 400 MG in SODIUM CHLORIDE 0.9% 50 ML IV SCH (20:43)
[2020-09-26] VITALS: BP 174/73
[2020-09-26] MEDS: CLONIDINE 0.1MG TABLET PO PRN ×3 (00:32→20:07)
[2020-09-26 04:00] VITALS: BP 157/62
[2020-09-26] MEDS: SODIUM CHLORIDE 0.9% INJ 3ML FLUSH IVF SCH ×3 (05:10→21:21)
[2020-09-26 08:00] VITALS: BP 180/82
[2020-09-26] MEDS: ACETAMINOPHEN 325MG TABLET PO PRN ×2 (10:51→17:24)
[2020-09-26 11:37] LABS: BASOPHILS % 0.9 % (0.0-2.0); EOSINOPHILS % 8.4 % (0.0-5.0); HEMATOCRIT. 27.6 % (36.0-48.0); HEMOGLOBIN. 8.9 g/dL (12.0-16.0); MEAN CORPUSCULAR HEMOGLOBIN 30.7 pg (28.0-32.0); MEAN CORPUSCULAR VOLUME 95.4 fL (81.0-99.0); MEAN PLATELET VOLUME 7.9 fl (7.4-10.4); NEUTROPHILS % 60.7 % (40.0-76.0); PLATELET 192 x1000/uL (130-400); RED BLOOD CELL COUNT 2.89 mill/uL (4.2-5.4); RED CELL DISTRIBUTION WIDTH 19.3 % (11.6-14.6)
[2020-09-26 12:00] VITALS: BP 169/76
[2020-09-26 16:00] VITALS: BP 175/75
[2020-09-26] MEDS: ENOXAPARIN 80MG/0.8ML SYR SUBCUT SCH (17:19)
[2020-09-26 20:00] VITALS: BP 166/62
[2020-09-27] VITALS: BP 159/78
[2020-09-27 04:00] VITALS: BP 173/74
[2020-09-27] MEDS: ACETAMINOPHEN 325MG TABLET PO PRN ×2 (04:46→15:49)
[2020-09-27] MEDS: CLONIDINE 0.1MG TABLET PO PRN ×2 (05:56→15:54)
[2020-09-27] MEDS: SODIUM CHLORIDE 0.9% INJ 3ML FLUSH IVF SCH ×3 (05:56→23:23)
[2020-09-27 08:00] VITALS: BP 167/78
[2020-09-27 12:00] VITALS: BP 109/76
[2020-09-27 16:00] VITALS: BP 177/77
[2020-09-27] MEDS: ENOXAPARIN 80MG/0.8ML SYR SUBCUT SCH ×2 (17:41→17:44)
[2020-09-27 20:00] VITALS: BP 177/60
[2020-09-27] MEDS: DAPTOMYCIN 400 MG in SODIUM CHLORIDE 0.9% 50 ML IV SCH (23:25)
[2020-09-28 04:00] VITALS: BP 192/67
[2020-09-28 05:33] VITALS: BP 175/66
[2020-09-28] MEDS: CLONIDINE 0.1MG TABLET PO PRN ×2 (05:33→22:32)
[2020-09-28] MEDS: SODIUM CHLORIDE 0.9% INJ 3ML FLUSH IVF SCH ×3 (05:38→22:32)
[2020-09-28 08:00] VITALS: BP 106/61
[2020-09-28 08:49] LABS: BASOPHILS % 0.7 % (0.0-2.0); EOSINOPHILS % 5.8 % (0.0-5.0); HEMATOCRIT. 28.9 % (36.0-48.0); HEMOGLOBIN. 9.3 g/dL (12.0-16.0); LYMPHOCYTES % 21.1 % (20.0-50.0); MEAN CORPUSCULAR HEMOGLOBIN 30.7 pg (28.0-32.0); MEAN CORPUSCULAR VOLUME 95.8 fL (81.0-99.0); MEAN PLATELET VOLUME 8.3 fl (7.4-10.4); MONOCYTES % 7.7 % (2.0-8.0); NEUTROPHILS % 64.7 % (40.0-76.0); PLATELET 236 x1000/uL (130-400); RED BLOOD CELL COUNT 3.01 mill/uL (4.2-5.4)
[2020-09-28 10:06] LABS: PHOSPHORUS 4.9 mg/dL (2.5-4.9)
[2020-09-28 12:00] VITALS: BP 150/47
[2020-09-28 16:15] VITALS: BP 123/63
[2020-09-28] MEDS: ENOXAPARIN 80MG/0.8ML SYR SUBCUT SCH (17:24)
[2020-09-28] MEDS: ACETAMINOPHEN 325MG TABLET PO PRN (18:55)
[2020-09-28 20:35] VITALS: BP 189/95
[2020-09-28] MEDS: DIPHENHYDRAMINE 50MG/ML VIAL IV PRN (22:32)
[2020-09-29] VITALS (7 sets, daily range): BP systolic 124–190; BP diastolic 61–90
[2020-09-29] MEDS: SODIUM CHLORIDE 0.9% INJ 3ML FLUSH IVF SCH ×3 (05:44→20:13)
[2020-09-29 07:16] LABS: EOSINOPHILS % 5.9 % (0.0-5.0); HEMATOCRIT. 30.2 % (36.0-48.0); HEMOGLOBIN. 9.7 g/dL (12.0-16.0); LYMPHOCYTES % 27.7 % (20.0-50.0); MEAN CORPUSCULAR HEMOGLOBIN 30.5 pg (28.0-32.0); MEAN CORPUSCULAR VOLUME 95.1 fL (81.0-99.0); MEAN PLATELET VOLUME 8.5 fl (7.4-10.4); MONOCYTES % 8.5 % (2.0-8.0); NEUTROPHILS % 56.9 % (40.0-76.0); PLATELET 230 x1000/uL (130-400); RED BLOOD CELL COUNT 3.17 mill/uL (4.2-5.4); RED CELL DISTRIBUTION WIDTH 19.5 % (11.6-14.6)
[2020-09-29 07:58] LABS: PHOSPHORUS 5.8 mg/dL (2.5-4.9)
[2020-09-29] MEDS: ACETAMINOPHEN 325MG TABLET PO PRN (20:12)
[2020-09-29] MEDS: EPOETIN ALFA-EPBX 10,000 UNIT/ML VIAL SUBCUT SCH (20:13)
[2020-09-29] MEDS: DAPTOMYCIN 400 MG in SODIUM CHLORIDE 0.9% 50 ML IV SCH (20:13)
[2020-09-30] VITALS (27 sets, daily range): BP systolic 145–226; BP diastolic 71–133
[2020-09-30] MEDS: SODIUM CHLORIDE 0.9% INJ 3ML FLUSH IVF SCH ×3 (05:29→21:40)
[2020-09-30] MEDS ORDERED: LIDOCAINE HCL 1% 20ML VIAL (Pyxis) INJ ONE (08:05)
[2020-09-30] MEDS ORDERED: HEPARIN 1000 UNITS/ML 10ML ONE (08:05)
[2020-09-30] MEDS ORDERED: FENTANYL CITRATE/PF 50MCG/ML 2ML VIAL ONE (08:30)
[2020-09-30] MEDS ORDERED: FENTANYL CITRATE/PF 50MCG/ML 2ML VIAL IV ONE (09:45)
[2020-09-30] MEDS ORDERED: CEFAZOLIN 1000MG PREMIX 50 ML IV NR (10:15)
[2020-09-30] MEDS ORDERED: FENTANYL CITRATE/PF 50MCG/ML 2ML VIAL IV NR (10:30)
[2020-09-30] MEDS: ACETAMINOPHEN 325MG TABLET PO PRN (11:14)
[2020-09-30] MEDS: CLONIDINE 0.1MG TABLET PO PRN (12:41)
[2020-09-30] MEDS: CLONIDINE 0.3MG TABLET PO PRN (18:00)
[2020-09-30] MEDS ORDERED: AMLODIPINE 10MG TABLET PO NR (21:15)
[2020-09-30] MEDS: HYDRALAZINE HCL 50MG TABLET PO SCH (21:37)
[2020-10-01] VITALS: BP 169/69
[2020-10-01 04:00] VITALS: BP 158/61
[2020-10-01] MEDS: HYDRALAZINE HCL 50MG TABLET PO SCH (06:16)
[2020-10-01] MEDS: SODIUM CHLORIDE 0.9% INJ 3ML FLUSH IVF SCH ×3 (06:16→21:12)
[2020-10-01] MEDS: ACETAMINOPHEN 325MG TABLET PO PRN ×2 (06:44→16:56)
[2020-10-01 07:05] LABS: EOSINOPHILS % 5.1 % (0.0-5.0); HEMATOCRIT. 28.7 % (36.0-48.0); HEMOGLOBIN. 9.4 g/dL (12.0-16.0); MEAN CORPUSCULAR HEMOGLOBIN 31.2 pg (28.0-32.0); MEAN CORPUSCULAR VOLUME 95.7 fL (81.0-99.0); MEAN PLATELET VOLUME 8.6 fl (7.4-10.4); MONOCYTES % 9.1 % (2.0-8.0); NEUTROPHILS % 62.8 % (40.0-76.0); PLATELET 227 x1000/uL (130-400); RED CELL DISTRIBUTION WIDTH 19.2 % (11.6-14.6)
[2020-10-01 07:20] LABS: PHOSPHORUS 5.9 mg/dL (2.5-4.9)
[2020-10-01 08:00] VITALS: BP 117/49
[2020-10-01] MEDS ORDERED: AMLODIPINE 10MG TABLET PO SCH (09:00)
[2020-10-01] MEDS: CLONIDINE 0.1MG TABLET PO SCH ×2 (14:00→22:00)
[2020-10-01] MEDS: HYDRALAZINE HCL 100MG TABLET PO SCH ×3 (14:00→22:00)
[2020-10-01] MEDS ORDERED: HEPARIN SODIUM 1,000 UNIT/1ML VIAL IV NR (14:45)
[2020-10-01 16:00] VITALS: BP 132/63
[2020-10-01] MEDS: CLONIDINE 0.3MG TABLET PO PRN (16:44)
[2020-10-01 20:00] VITALS: BP 153/57
[2020-10-01] MEDS: EPOETIN ALFA-EPBX 10,000 UNIT/ML VIAL SUBCUT SCH ×2 (21:00→21:11)
[2020-10-01] MEDS: DAPTOMYCIN 400 MG in SODIUM CHLORIDE 0.9% 50 ML IV SCH (21:11)
[2020-10-02 04:00] VITALS: BP 166/52
[2020-10-02] MEDS: SODIUM CHLORIDE 0.9% INJ 3ML FLUSH IVF SCH ×2 (05:15→14:00)
[2020-10-02] MEDS: HYDRALAZINE HCL 100MG TABLET PO SCH ×2 (05:15→14:47)
[2020-10-02] MEDS: CLONIDINE 0.1MG TABLET PO SCH (05:15)
[2020-10-02 08:00] VITALS: BP 158/53
[2020-10-02] MEDS ORDERED: ENOXAPARIN 80MG/0.8ML SYR SUBCUT SCH (09:00)
[2020-10-02] MEDS ORDERED: NIFEDIPINE XL 60MG TAB PO SCH (09:15)
[2020-10-02 12:00] VITALS: BP 123/48
[2020-10-02 16:00] VITALS: BP 129/80
[2020-10-02 19:40] VITALS: BP 134/50
== END 2020-10-02 21:02 | DRG 206 ==
LOC: ER 12:56 → 5WST 18:05 → EDBEDREQTM 18:13 → EDBEDREQ 18:13 → ENRESERV 21:05
PROVIDERS: ADMIT Internal Medicine; ATTEND Internal Medicine
PROC: 5A1D70Z Performance of Urinary Filtration, Intermittent, Less than 6 Hours Per Day (ICD-10-PCS; principal; 2020-09-21)
PROC: 5A1D70Z Performance of Urinary Filtration, Intermittent, Less than 6 Hours Per Day (ICD-10-PCS; 2020-09-21)
PROC: 0JPT3XZ Removal of Tunneled Vascular Access Device from Trunk Subcutaneous Tissue and Fascia, Percutaneous Approach (ICD-10-PCS; 2020-09-22)
PROC: 05PYX3Z Removal of Infusion Device from Upper Vein, External Approach (ICD-10-PCS; 2020-09-22)
PROC: 02HV33Z Insertion of Infusion Device into Superior Vena Cava, Percutaneous Approach (ICD-10-PCS; 2020-09-22)
PROC: B548ZZA Ultrasonography of Superior Vena Cava, Guidance (ICD-10-PCS; 2020-09-22)
PROC: B5181ZA Fluoroscopy of Superior Vena Cava using Low Osmolar Contrast, Guidance (ICD-10-PCS; 2020-09-22)
PROC: 5A1D70Z Performance of Urinary Filtration, Intermittent, Less than 6 Hours Per Day (ICD-10-PCS; 2020-09-23)
PROC: 5A1D70Z Performance of Urinary Filtration, Intermittent, Less than 6 Hours Per Day (ICD-10-PCS; 2020-09-25)
PROC: 02PYX3Z Removal of Infusion Device from Great Vessel, External Approach (ICD-10-PCS; 2020-09-30)
PROC: 02H633Z Insertion of Infusion Device into Right Atrium, Percutaneous Approach (ICD-10-PCS; 2020-09-30)
PROC: 0JH63XZ Insertion of Tunneled Vascular Access Device into Chest Subcutaneous Tissue and Fascia, Percutaneous Approach (ICD-10-PCS; 2020-09-30)
PROC: B5181ZA Fluoroscopy of Superior Vena Cava using Low Osmolar Contrast, Guidance (ICD-10-PCS; 2020-09-30)
DX: T82.868A Thrombosis due to vascular prosthetic devices, implants and grafts, initial encounter (principal); I80.9 Phlebitis and thrombophlebitis of unspecified site; A41.02 Sepsis due to Methicillin resistant Staphylococcus aureus; D64.9 Anemia, unspecified; E03.9 Hypothyroidism, unspecified; F03.90 Unspecified dementia, unspecified severity, without behavioral disturbance, psychotic disturbance, mood disturbance, and anxiety; G93.40 Encephalopathy, unspecified; I13.2 Hypertensive heart and chronic kidney disease with heart failure and with stage 5 chronic kidney disease, or end stage renal disease; I50.9 Heart failure, unspecified; J44.9 Chronic obstructive pulmonary disease, unspecified; N18.6 End stage renal disease; L89.156 Pressure-induced deep tissue damage of sacral region; E66.9 Obesity, unspecified; Z66 Do not resuscitate; E83.39 Other disorders of phosphorus metabolism; J18.9 Pneumonia, unspecified organism; Z86.16 Personal history of COVID-19; Y83.8 Other surgical procedures as the cause of abnormal reaction of the patient, or of later complication, without mention of misadventure at the time of the procedure; Z20.822 Contact with and (suspected) exposure to COVID-19; E44.1 Mild protein-calorie malnutrition; R64 Cachexia; I82.B12 Acute embolism and thrombosis of left subclavian vein; T36.8X5A Adverse effect of other systemic antibiotics, initial encounter; Y92.89 Other specified places as the place of occurrence of the external cause; Z88.1 Allergy status to other antibiotic agents; Z99.2 Dependence on renal dialysis; Z88.8 Allergy status to other drugs, medicaments and biological substances; Z79.899 Other long term (current) drug therapy; Z68.28 Body mass index [BMI] 28.0-28.9, adult
CPT/HCPCS: 36415; 36556; 36558; 36589; 71045; 76604; 76937; 77001; 80048; 80053; 82040; 82550; 82962; 83605; 83735; 84100; 84134; 84145; 85025; 86850; 86900; 87077; 87186; 87426; 93005; 93306; 97162; 99152; 99153; 99285; C1750; C1752; C1769; C1887; C1893; J0456; J0696; J0878; J0885; J1200; J1642; J1644; J1650; J3010; J3490; J7040; J7060; Q9967; G0500

== ENCOUNTER 2021-05-27 20:52 | Inpatient (IN) | payer MEDICARE, MEDICAID ==
[~2021-05-27] VITALS: Ht 170.2 cm; Wt 63.5 kg
[~2021-05-27 20:52] MED LIST changes: +AMLO5TAB4 PO; +ATOR-2 PO; +CALC667T2 PO; +COR6 PO; -MAGN30OR PO; -TIZA2CAP7 PO
[2021-05-27 21:42] LABS: HEMATOCRIT. 36.7 % (36.0-48.0); HEMOGLOBIN. 12.2 g/dL (12.0-16.0); MEAN CORPUSCULAR HEMOGLOBIN 29.7 pg (28.0-32.0); MEAN CORPUSCULAR VOLUME 89.4 fL (81.0-99.0); MEAN PLATELET VOLUME 7.5 fl (7.4-10.4); PLATELET 162 x1000/uL (130-400); RED BLOOD CELL COUNT 4.11 mill/uL (4.2-5.4); RED CELL DISTRIBUTION WIDTH 18.7 % (11.6-14.6)
[2021-05-27 21:48] LABS: CHLORIDE 100 mEq/L (98-107)
[2021-05-27 21:58] LABS: PLATELET ESTIMATE NORMAL
[2021-05-28] VITALS (41 sets, daily range): BP systolic 30–174; BP diastolic 13–95
[2021-05-28] MEDS ORDERED: NITROGLYCERIN OINT 1GM/INCH UDPKT TD NR (04:30)
[2021-05-28] MEDS: CLONIDINE 0.1MG TABLET PO PRN ×2 (04:47→08:18)
[2021-05-28] MEDS ORDERED: DEXTROSE 50% WATER 50ML SYRINGE IV SCH (07:45)
[2021-05-28 08:12] LABS: BG BASE EXCESS 0.1 mmol/L (-2.0-2.0); BG CARBOXYHEMOGLOBIN 1.2 % (0.5-1.5); BG HCO3 ACT 25.2 mmol/L (22.0-26.0); BG METHEMOGLOBIN 0.3 % (0.0-1.5); BG OXYGEN SATURATION 87.8 % (92.0-98.5); BG OXYHEMOGLOBIN 86.5 % (94.0-97.0); BG PCO2 42.6 mmHg (35.0-45.0); BG PH 7.389 (7.350-7.450); BG SAMPLE SITE LEFT RADIAL; BG TOTAL HEMOGLOBIN 12.1 g/dL (12.0-18.0); BG VENT MODE NASAL CANNULA
[2021-05-28] MEDS ORDERED: ETOMIDATE 2MG/ML 10ML VIAL IV ONE (08:41)
[2021-05-28] MEDS ORDERED: SUCCINYLCHOLINE CHLORIDE 200MG/10ML IV ONE (08:41)
[2021-05-28 09:11] LABS: HEMATOCRIT. 39.6 % (36.0-48.0); HEMOGLOBIN. 12.9 g/dL (12.0-16.0); MEAN CORPUSCULAR HEMOGLOBIN 29.5 pg (28.0-32.0); MEAN CORPUSCULAR VOLUME 90.6 fL (81.0-99.0); MEAN PLATELET VOLUME 7.6 fl (7.4-10.4); PLATELET 147 x1000/uL (130-400); RED BLOOD CELL COUNT 4.37 mill/uL (4.2-5.4)
[2021-05-28 09:18] LABS: CHLORIDE 101 mEq/L (98-107)
[2021-05-28] MEDS ORDERED: EPINEPHRINE 0.1MG/ML (1:10,000) 10ML SYR ONE ×2 (09:38→13:44)
[2021-05-28] MEDS ORDERED: CALCIUM CHLORIDE 1GM/10ML SYR IV ONE ×2 (09:38→13:44)
[2021-05-28] MEDS ORDERED: SODIUM BICARBONATE 8.4% 1 MEQ/ML 50ML SYR IV ONE ×2 (09:38→13:44)
[2021-05-28] MEDS ORDERED: DEXTROSE 50% WATER 50ML SYRINGE IV ONE ×2 (09:38→13:44)
[2021-05-28] MEDS ORDERED: ACETAMINOPHEN 325MG TABLET PO PRN (11:15)
[2021-05-28 11:21] LABS: PLATELET ESTIMATE NORMAL
[2021-05-28 11:40] LABS: BG BASE EXCESS -0.2 mmol/L (-2.0-2.0); BG CARBOXYHEMOGLOBIN 0.4 % (0.5-1.5); BG DEOXYHEMOGLOBIN 2.9 % (0.0-5.0); BG FRACTION INSPIRED OXYGEN 100; BG HCO3 ACT 24.1 mmol/L (22.0-26.0); BG METHEMOGLOBIN 0.3 % (0.0-1.5); BG OXYGEN SATURATION 97.1 % (92.0-98.5); BG OXYHEMOGLOBIN 96.4 % (94.0-97.0); BG PCO2 38.5 mmHg (35.0-45.0); BG PH 7.415 (7.350-7.450); BG PO2 89.1 mmHg (75.0-100.0); BG SAMPLE SITE LEFT RADIAL; BG TOTAL HEMOGLOBIN 12.4 g/dL (12.0-18.0); BG TOTAL RESPIRATORY RATE 19 b/min; BG VENT MODE MASK - BIPAP
[2021-05-28 12:47] LABS: HEPATITIS B SURFACE ANTIGEN NEGATIVE
[2021-05-28] MEDS ORDERED: ATROPINE SULFATE 1MG/10ML SYR ONE (13:44)
[2021-05-28 14:07] LABS: BG BASE EXCESS -0.8 mmol/L (-2.0-2.0); BG CARBOXYHEMOGLOBIN 0.8 % (0.5-1.5); BG DEOXYHEMOGLOBIN 6.6 % (0.0-5.0); BG FRACTION INSPIRED OXYGEN 100; BG HCO3 ACT 23.3 mmol/L (22.0-26.0); BG METHEMOGLOBIN 0.3 % (0.0-1.5); BG OXYGEN SATURATION 93.3 % (92.0-98.5); BG OXYHEMOGLOBIN 92.3 % (94.0-97.0); BG PCO2 36.5 mmHg (35.0-45.0); BG PH 7.422 (7.350-7.450); BG PO2 61.2 mmHg (75.0-100.0); BG SAMPLE SITE LEFT RADIAL; BG VENT MODE MASK - BIPAP
[2021-05-28] MEDS ORDERED: IPRATROPIUM/ALBUTEROL 0.5-3(2.5)MG/3ML NEB HHN PRN (14:15)
[2021-05-28] MEDS ORDERED: NOREPINEPHRINE 32 MG in DEXT 5% WATER 218 ML IV PRN (16:45)
[2021-05-28] MEDS ORDERED: PROPOFOL 10MG/ML 100ML 100 ML IV PRN (18:35)
[2021-05-28] MEDS ORDERED: FENTANYL CITRATE/PF 2,500 MCG in SODIUM CHLORIDE 0.9% 200 ML IV PRN (18:45)
[2021-05-28] MEDS: IPRATROPIUM/ALBUTEROL 0.5-3(2.5)MG/3ML NEB HHN SCH ×2 (19:41→23:57)
[2021-05-28] MEDS ORDERED: PHENYLEPHRINE 100 MG in DEXT 5% WATER 240 ML IV PRN (20:00)
[2021-05-28] MEDS ORDERED: PIPERACILLIN/TAZOBACTAM 3.375 G in DEXTROSE 5% WATER 50 ML IV SCH ×2 (21:00→22:00)
[2021-05-28] MEDS ORDERED: ENOXAPARIN 30MG/0.3ML SYR SUBCUT SCH (21:00)
[2021-05-28] MEDS ORDERED: VASOPRESSIN 20 UNIT in SODIUM CHLORIDE 0.9% 99 ML IV PRN (21:30)
[2021-05-28 21:40] LABS: CREATINE KINASE MB FRACTION 9.9 ng/mL (0.5-3.6)
[2021-05-28 21:44] LABS: HEMATOCRIT. 35.5 % (36.0-48.0); HEMOGLOBIN. 11.4 g/dL (12.0-16.0); MEAN CORPUSCULAR VOLUME 93.1 fL (81.0-99.0); MEAN PLATELET VOLUME 8.1 fl (7.4-10.4); PLATELET 148 x1000/uL (130-400); RED BLOOD CELL COUNT 3.81 mill/uL (4.2-5.4); RED CELL DISTRIBUTION WIDTH 19.4 % (11.6-14.6)
[2021-05-28] MEDS ORDERED: ACETYLCYSTEINE 100MG/ML 10% VIAL 4ML INH SCH (22:00)
[2021-05-28 22:11] LABS: INR 1.7; PROTHROMBIN TIME 17.8 sec (9.6-11.0)
[2021-05-28 22:24] LABS: BG BASE EXCESS -15.4 mmol/L (-2.0-2.0); BG CARBOXYHEMOGLOBIN 0.3 % (0.5-1.5); BG DEOXYHEMOGLOBIN 17.1 % (0.0-5.0); BG FRACTION INSPIRED OXYGEN 100; BG HCO3 ACT 11.9 mmol/L (22.0-26.0); BG METHEMOGLOBIN 0.3 % (0.0-1.5); BG OXYGEN SATURATION 82.8 % (92.0-98.5); BG OXYHEMOGLOBIN 82.3 % (94.0-97.0); BG PCO2 33.1 mmHg (35.0-45.0); BG PH 7.174 (7.350-7.450); BG PO2 55.4 mmHg (75.0-100.0); BG SAMPLE SITE LEFT FEMORAL; BG TOTAL HEMOGLOBIN 11.5 g/dL (12.0-18.0); BG TOTAL RESPIRATORY RATE 26 b/min; BG VENT MODE VENT - AC
[2021-05-28] MEDS ORDERED: SODIUM BICARBONATE 8.4% 1 MEQ/ML 50ML SYR IV NR (22:35)
[2021-05-28 22:38] LABS: PLATELET ESTIMATE NORMAL
[2021-05-28] MEDS ORDERED: SODIUM BICARBONATE 100 MEQ in DEXTROSE 5% WATER 1,000 ML IV SCH (23:00)
[2021-05-28 23:37] LABS: HEMATOCRIT. 30.7 % (36.0-48.0); HEMOGLOBIN. 9.8 g/dL (12.0-16.0); MEAN CORPUSCULAR HEMOGLOBIN 30.1 pg (28.0-32.0); MEAN CORPUSCULAR VOLUME 94.3 fL (81.0-99.0); MEAN PLATELET VOLUME 5.5 fl (7.4-10.4); PLATELET 261 x1000/uL (130-400); RED BLOOD CELL COUNT 3.25 mill/uL (4.2-5.4); RED CELL DISTRIBUTION WIDTH 19.9 % (11.6-14.6)
[2021-05-29] MEDS ORDERED: SODIUM CHLORIDE 0.9% 500 ML IV ONE
[2021-05-29 00:02] VITALS: BP 139/71
[2021-05-29] MEDS ORDERED: PANTOPRAZOLE SODIUM 40 MG/VIAL IV SCH (09:00)
[2021-05-29 14:00] LABS: NUCLEATED RED BLOOD CELLS 15 /100 WBC; PLATELET ESTIMATE NORMAL
== END 2021-05-29 00:14 | DRG 720 ==
LOC: ER 20:52 → MICUSO 23:50 → EDBEDREQ 23:52 → EDBEDREQTM 23:52 → MICUSO 05-28 07:20 → 6WST 05-28 07:20 → MICUSO 05-28 07:51 → CANBEDREQ 05-28 22:26
PROVIDERS: ADMIT Family Medicine; ATTEND Family Medicine
PROC: 02HV33Z Insertion of Infusion Device into Superior Vena Cava, Percutaneous Approach (ICD-10-PCS; principal; 2021-05-28)
PROC: 5A12012 Performance of Cardiac Output, Single, Manual (ICD-10-PCS; 2021-05-28)
PROC: 5A1935Z Respiratory Ventilation, Less than 24 Consecutive Hours (ICD-10-PCS; 2021-05-28)
PROC: B548ZZA Ultrasonography of Superior Vena Cava, Guidance (ICD-10-PCS; 2021-05-28)
PROC: 0BH17EZ Insertion of Endotracheal Airway into Trachea, Via Natural or Artificial Opening (ICD-10-PCS; 2021-05-28)
PROC: 5A12012 Performance of Cardiac Output, Single, Manual (ICD-10-PCS; 2021-05-28)
PROC: 5A09357 Assistance with Respiratory Ventilation, Less than 24 Consecutive Hours, Continuous Positive Airway Pressure (ICD-10-PCS; 2021-05-28)
PROC: 5A1D70Z Performance of Urinary Filtration, Intermittent, Less than 6 Hours Per Day (ICD-10-PCS; 2021-05-28)
PROC: 5A12012 Performance of Cardiac Output, Single, Manual (ICD-10-PCS; 2021-05-29)
DX: A41.9 Sepsis, unspecified organism (principal); J96.00 Acute respiratory failure, unspecified whether with hypoxia or hypercapnia; I46.9 Cardiac arrest, cause unspecified; E44.1 Mild protein-calorie malnutrition; G92.8 Other toxic encephalopathy; R65.20 Severe sepsis without septic shock; E11.22 Type 2 diabetes mellitus with diabetic chronic kidney disease; D64.9 Anemia, unspecified; I13.2 Hypertensive heart and chronic kidney disease with heart failure and with stage 5 chronic kidney disease, or end stage renal disease; N18.6 End stage renal disease; E03.9 Hypothyroidism, unspecified; E78.00 Pure hypercholesterolemia, unspecified; F03.90 Unspecified dementia, unspecified severity, without behavioral disturbance, psychotic disturbance, mood disturbance, and anxiety; E78.5 Hyperlipidemia, unspecified; I50.32 Chronic diastolic (congestive) heart failure; J44.9 Chronic obstructive pulmonary disease, unspecified; Z20.822 Contact with and (suspected) exposure to COVID-19; M19.90 Unspecified osteoarthritis, unspecified site; Z86.14 Personal history of Methicillin resistant Staphylococcus aureus infection; Z86.16 Personal history of COVID-19; Z86.718 Personal history of other venous thrombosis and embolism; Z86.73 Personal history of transient ischemic attack (TIA), and cerebral infarction without residual deficits; Z88.1 Allergy status to other antibiotic agents; Z93.3 Colostomy status; Z99.2 Dependence on renal dialysis; Z79.899 Other long term (current) drug therapy; Z68.21 Body mass index [BMI] 21.0-21.9, adult
CPT/HCPCS: 36415; 36600; 71045; 80048; 80053; 82140; 82375; 82550; 82553; 82805; 82962; 83880; 84484; 85025; 86705; 86709; 86803; 87077; 87186; 87340; 87426; 93005; 94002; 94640; 94660; 99285; J0330; J0461; J1650; J2370; J2543; J2704; J3490; J7060; J7070; A4315